=== PATIENT | male | born 1945 | race Caucasian/White ===

== ENCOUNTER → 2016-02-29 | Outpatient (CLI) | payer BC ==
[~2016-02-29] MED LIST: AMOX500C3 PO; ASPI81TA28 PO; ATV5X PO; CALC1CRE2 TOP; CLOB-65 TOP; CLOB1OIN2 TOP; MECL1TAB42 PO; METO50TA16 PO; MOME0.1O TOP; MULT-845 PO; NTRGSL/4 UT; OMEG100046 PO; OMEP40CA41 PO; PSYL48.59 PO; PSYL58.611 PO; SIMV40TA2 PO; TRIA75TA53 PO; VITA10004 PO; VITA1CRE PO; VTMD1000 PO
== END | disposition home or self-care (01) ==
LOC: C.MAMM 10:20
PROVIDERS: ATTEND Family Medicine
DX: M54.5 Low back pain (principal); M25.559 Pain in unspecified hip

== ENCOUNTER → 2016-04-21 | Outpatient (CLI) | payer BC ==
[2016-04-21 12:36] LABS: CHOLESTEROL/HDL RATIO 2.5
== END | disposition home or self-care (01) ==
LOC: C.LABPVFM 08:35
PROVIDERS: ATTEND Internal Medicine Cardiovascular Disease
DX: E78.5 Hyperlipidemia, unspecified (principal)

== ENCOUNTER 2016-10-07 19:25 | Emergency (ER) | payer BC ==
[~2016-10-07] VITALS: Ht 162.6 cm; Wt 81.6 kg
[~2016-10-07 19:25] MED LIST changes: -CLOB1OIN2 TOP; -MOME0.1O TOP; -PSYL48.59 PO; -VITA10004 PO; -VITA1CRE PO
[2016-10-07 19:34] VITALS: TEMP 36.5; Ht 162.6 cm; Wt 81.6 kg
[2016-10-07] MEDS ORDERED: MECLIZINE HCL 25 MG TAB PO STA (19:50)
[2016-10-07] MEDS ORDERED: SODIUM CHLORIDE 0.9% 1000ML 1,000 ML IV STA (19:50)
[2016-10-07] MEDS ORDERED: ONDANSETRON 4MG OD TAB PO ONE (20:00)
--- NOTE | 2016-10-07 20:11 | EMERGENCY ROOM VISIT NOTE ---
History Report prepared by Violet: Lexi Peterson Under the Supervision of: Dr. Chava Nicolas D.O. First contact with patient: 19:41 Chief Complaint: VERTIGO Stated Complaint: VERTIGO, DIZZY History of Present Illness The patient is a 71 year old male who presents to the Emergency Room with complaints of worsening vertigo for the past week. The patient states that he has been dealing with vertigo for the past two years. Over the last week his symptoms have worsened. He reports dizziness and nausea. His has had to pick him up from work twice this week due to his symptoms. The patient states that movement exacerbates his symptoms. Bending over and changing positions make him especially dizzy. He notes that the intensity of his symptoms is worse than usual. The patient has a history of Menieres Disease and has ringing in his ears that is chronic. He was at [facility] about 1 month ago and had a tube placed in his left ear. He notes that this typically makes his vertigo symptoms worse for a couple of days and then they improve. The patient denies weakness in his arms and legs. He denies any personal history of stroke. He takes Meclizine and Ativan for his symptoms at night, but he has not taken any today. Source of History: patient Onset: 1 week ago Position: other (global) Quality: other (vertigo/dizziness) Timing: worsening Modifying Factors (Worsening): movement, other (bending over and changing positions) Associated Symptoms: + nausea, No weakness Review of Systems See HPI for pertinent positives & negatives. A total of 10 systems reviewed and were otherwise negative. Past Medical & Surgical Medical Problems: (1) Heart disease (2) Hypertension (3) Vertigo Family History Heart disease Hypertension Social History Smoking Status: Never Smoker Marital Status: Housing Status: lives with family Occupation Status: employed Current/Historical Medications Scheduled Amoxicillin (Amoxil), 2,000 MG PO UD Aspirin (Aspirin Ec), 81 MG PO QAM Calcipotriene (Calcipotriene), 1 APPL TOP UD Cholecalciferol (Vitamin D3), 1,000 INTER.UNIT PO DAILY Clobetasol Propionate (Temovate), 1 APPLN TOP UD Meclizine Hcl (Meclizine Hcl), 25 MG PO QPM Metoprolol Tartrate (Lopressor) (Lopressor), 50 MG PO BID Mometasone Furoate (Elocon), 1 APPLN TOP DAILY Multiple Vitamins W/ Minerals (Centrum Silver Adult 50+), 1 TABLET PO DAILY [place]-3 Fatty Acids ([place] 3), 1,000 MG PO QAM Omeprazole (Prilosec), 40 MG PO BID Psyllium (Metamucil), 2 TBS PO BID Simvastatin (Zocor), 40 MG PO HS Triamterene/Hctz (Maxzide 75MG/50MG), 1 TAB PO DAILY Vitamin E (Vitamin E), 1,000 UNITS PO QPM Scheduled PRN Lorazepam (Lorazepam), 0.5 MG PO Q6 PRN for Anxiety Nitroglycerin (Nitrostat), 0.4 MG UT UD PRN for Chest Pain Allergies Coded Allergies: POLLEN (Verified Allergy, Mild, ENVIRONMENTAL ALLERGIES, 10/07/16) Physical Exam Vital Signs Date Time Temp Pulse Resp B/P (MAP) Pulse Ox O2 Delivery O2 Flow Rate FiO2 10/07/16 21:47 58 18 137/72 95 10/07/16 20:52 60 18 135/61 96 Room Air 10/07/16 20:26 98 Room Air 10/07/16 20:26 98 Room Air 10/07/16 20:05 61 10/07/16 19:42 68 20 162/65 95 Room Air 79 153/75 81 148/63 10/07/16 19:34 36.5 85 16 120/83 95 Room Air Physical Exam GENERAL: Patient is awake, alert, and in no acute distress. Patient is resting comfortably and showing no signs of anxiety EYES: The conjunctivae are clear. The pupils are round and reactive. EARS, NOSE, MOUTH AND THROAT: The nose is without any evidence of any deformity. Mucous membranes are moist tongue is midline NECK: The neck is nontender and supple. RESPIRATORY: Normal respiratory effort is noted there is no evidence of wheezing rhonchi or rales CARDIOVASCULAR: Regular rate and rhythm noted there no murmurs rubs or gallops normal S1 normal S2 GASTROINTESTINAL: The abdomen is soft. Bowel sounds are present in all quadrants. Abdomen is nontender MUSCULOSKELETAL/EXTREMITIES: There is no evidence of gross deformity full range of motion is noted in the hips and shoulders SKIN: There is no obvious evidence of any rash. There are no petechiae, pallor or cyanosis noted. NEUROLOGIC: Patient is awake alert and oriented x3 strength is symmetric patellar reflexes are 2+ bilaterally. Rapid alternating movements were symmetrical, no past pointing noted. Medical Decision & Procedures ER Provider Diagnostic Interpretation: Radiology results as stated below per my review and radiologist interpretation: CHEST ONE VIEW PORTABLE CLINICAL HISTORY: 71 years-old Male presenting with EVALUATE ALTERED MENTAL STATUS/WEAKNESS. TECHNIQUE: Portable upright AP view of the chest was obtained. COMPARISON: 04/28/2015. FINDINGS: Spinal stimulator projects over the cardiac silhouette. Otherwise cartilage mediastinal silhouette normal. Lungs and pleural spaces clear. Azygos lobe noted. Partially visualized lumbar region hardware. Upper abdomen normal. IMPRESSION: 1. No acute cardiopulmonary disease. Electronically signed by: Molina Vicente M.D. 10/07/2016 8:27 PM Dictated Date/Time: 10/07/2016 8:26 PM Laboratory Results 10/07/16 20:09 Red Blood Count 4.76, Mean Corpuscular Volume 90.1, Mean Corpuscular Hemoglobin 29.8, Mean Corpuscular Hemoglobin Concent 33.1, Mean Platelet Volume 10.2, Neutrophils (%) (Auto) 62.5, Lymphocytes (%) (Auto) 21.7, Monocytes (%) (Auto) 11.7, Eosinophils (%) (Auto) 3.5, Basophils (%) (Auto) 0.4, Neutrophils # (Auto ) 5.01, Lymphocytes # (Auto) 1.74, Monocytes # (Auto) 0.94, Eosinophils # (Auto ) 0.28, Basophils # (Auto) 0.03 10/07/16 20:09 Test 10/07/16 20:09 10/07/16 20:11 White Blood Count 8.02 K/uL (4.8-10.8) Red Blood Count 4.76 M/uL (4.7-6.1) Hemoglobin 14.2 g/dL (14.0-18.0) Hematocrit 42.9 % (42-52) Mean Corpuscular Volume 90.1 fL (80-100) Mean Corpuscular Hemoglobin 29.8 pg (25-34) Mean Corpuscular Hemoglobin Concent 33.1 g/dl (32-36) Platelet Count 265 K/uL (130-400) Mean Platelet Volume 10.2 fL (7.4-10.4) Neutrophils (%) (Auto) 62.5 % Lymphocytes (%) (Auto) 21.7 % Monocytes (%) (Auto) 11.7 % Eosinophils (%) (Auto) 3.5 % Basophils (%) (Auto) 0.4 % Neutrophils # (Auto) 5.01 K/uL (1.4-6.5) Lymphocytes # (Auto) 1.74 K/uL (1.2-3.4) Monocytes # (Auto) 0.94 K/uL (0.11-0.59) Eosinophils # (Auto) 0.28 K/uL (0-0.5) Basophils # (Auto) 0.03 K/uL (0-0.2) RDW Standard Deviation 42.0 fL (36.4-46.3) RDW Coefficient of Variation 12.8 % (11.5-14.5) Immature Granulocyte % (Auto) 0.2 % Immature Granulocyte # (Auto) 0.02 K/uL (0.00-0.02) Prothrombin Time 10.3 SECONDS (9.0-12.0) Prothromb Time International Ratio 1.0 (0.9-1.1) Activated Partial Thromboplast Time 27.6 SECONDS (21.0-31.0) Partial Thromboplastin Ratio 1.1 Anion Gap 5.0 mmol/L (3-11) Est Creatinine Clear Calc Drug Dose 49.5 ml/min Estimated GFR () 63.2 Estimated GFR (Non- 54.5 BUN/Creatinine Ratio 16.1 (10-20) Calcium Level 8.6 mg/dl (8.5-10.1) Magnesium Level 2.3 mg/dl (1.8-2.4) Total Bilirubin 0.7 mg/dl (0.2-1) Direct Bilirubin 0.2 mg/dl (0-0.2) Aspartate Amino Transf (AST/SGOT) 21 U/L (15-37) Alanine Aminotransferase (ALT/SGPT) 32 U/L (12-78) Alkaline Phosphatase 90 U/L (45-117) Troponin I 0.038 ng/ml (0-0.045) Total Protein 6.8 gm/dl (6.4-8.2) Albumin 3.4 gm/dl (3.4-5.0) Thyroid Stimulating Hormone (TSH) 1.250 uIu/ml (0.300-4.500) Urine Color YELLOW Urine Appearance CLEAR (CLEAR) Urine pH 6.0 (4.5-7.5) Urine Specific [place] 1.022 (1.000-1.030) Urine Protein NEG (NEG) Urine Glucose (UA) NEG (NEG) Urine Ketones TRACE (NEG) Urine Occult Blood NEG (NEG) Urine Nitrite NEG (NEG) Urine Bilirubin NEG (NEG) Urine Urobilinogen NEG (NEG) Urine Leukocyte Esterase NEG (NEG) Laboratory results per my review. Medications Administered Medications (Trade) Dose Ordered Sig/Philip Route Start Time Stop Time Status Last Admin Dose Admin Ondansetron HCl (Zofran Odt) 4 mg ONE ONCE PO 10/07/16 20:00 10/07/16 20:01 DC 10/07/16 20:27 4 MG Sodium Chloride 1,000 ml @ 999 mls/hr Q1H1M STAT IV 10/07/16 19:50 10/07/16 20:50 DC 10/07/16 19:40 999 MLS/HR Meclizine HCl (Antivert Tab) 25 mg NOW STAT PO 10/07/16 19:50 10/07/16 19:51 DC 10/07/16 20:27 25 MG ECG Indication: other (dizzy) Rate (beats per minute): 63 Rhythm: normal sinus Findings: no acute ischemic change, no ectopy Comparison ECG Date: 07/06/15 Change: no significant change ED Course 1940: The patient was evaluated in room C10. A complete history and physical examination were performed. 1950: Meclizine HCl 25 mg PO, NSS 1000 ml @ 999 mls/hr IV 1999: Zofran 4 mg PO 2112: I reassessed the patient at this time. He is feeling better and resting comfortably. I discussed the results and treatment plan with the patient. I answered all pertaining questions that he had. He expressed understanding and verbalized agreement. The patient will be discharged home. Medical Decision Differential diagnosis: Etiologies such as benign positional vertigo, dehydration, hypovolemia, anemia, tumor, infection, hypoglycemia, electrolyte abnormalities, cardiac sources, intracerebral event, toxicologic, neurologic, as well as others were entertained. Nursing notes reviewed. Patient's previous electronic medical records reviewed. The patient is a 71-year-old male who has a history of chronic vertigo who presented to the emergency department for an evaluation of vertigo. The patient did not take his medications for vertigo and was treated with meclizine and Zofran in the emergency department. He is had radiographic studies in the past. The patient is currently scheduled to follow-up for vestibular rehabilitation this Sunday. He was reevaluated multiple times. On subsequent reevaluation he was feeling much better. He was encouraged to rest and avoid any strenuous activity. He was also encouraged to continue all medications as prescribed and follow-up with his primary care physician for further evaluation. He was also encouraged to return the emergency Department immediately if symptoms change worsen or the need arises. The patient did not have any focal neurologic deficit. Medication Reconcilliation Current Medication List: was personally reviewed by me Blood Pressure Screening Patient's blood pressure: Normal blood pressure Impression Primary Impression: Vertigo Scribe Attestation The scribe's documentation has been prepared under my direction and personally reviewed by me in its entirety. I confirm that the note above accurately reflects all work, treatment, procedures, and medical decision making performed by me. Departure Information Dispostion Home / Self-Care Referrals Molina Otto M.D. (PCP) Forms HOME CARE DOCUMENTATION FORM, IMPORTANT VISIT INFORMATION, WORK / SCHOOL INSTRUCTIONS Patient Instructions ED Dizziness [facility], My [facility] Additional Instructions Continue all medications as prescribed. Rest and avoid any strenuous activity. Follow-up for therapy on Sunday as scheduled. Return to emergency department immediately if symptoms change worsen or the need arises
[2016-10-07] MEDS ORDERED: CALC1CRE2 TOP (20:23)
[2016-10-07 20:26] VITALS: O2SAT 98
[2016-10-07] MEDS ORDERED: CLOB1OIN2 TOP (20:27)
--- NOTE | 2016-10-07 20:29 | DIAGNOSTIC IMAGING REPORT ---
CHEST ONE VIEW PORTABLE CLINICAL HISTORY: 71 years-old Male presenting with EVALUATE ALTERED MENTAL STATUS/WEAKNESS. TECHNIQUE: Portable upright AP view of the chest was obtained. COMPARISON: 04/28/2015. FINDINGS: Spinal stimulator projects over the cardiac silhouette. Otherwise cartilage mediastinal silhouette normal. Lungs and pleural spaces clear. Azygos lobe noted. Partially visualized lumbar region hardware. Upper abdomen normal. IMPRESSION: 1. No acute cardiopulmonary disease. Electronically signed by: Molina Vicente M.D. 10/07/2016 8:27 PM Dictated Date/Time: 10/07/2016 8:26 PM
[2016-10-07 20:30] LABS: BASO % 0.4 %; BASO ABS # 0.03 K/uL (0-0.2); COMPLETE YES; EOS % 3.5 %; HEMATOCRIT 42.9 % (42-52); IG% 0.2 %; LYMPH % 21.7 %; LYMPH ABS # 1.74 K/uL (1.2-3.4); MEAN CELL VOLUME 90.1 fL (80-100); MEAN CORPUSCULAR HEMOGLOBIN 29.8 pg (25-34); MEAN CORPUSCULAR HGB CONC 33.1 g/dl (32-36); MEAN PLATELET VOLUME 10.2 fL (7.4-10.4); MONO % 11.7 %; NEUT % 62.5 %; PLATELET COUNT 265 K/uL (130-400); RED BLOOD COUNT 4.76 M/uL (4.7-6.1); WHITE BLOOD COUNT 8.02 K/uL (4.8-10.8)
[2016-10-07] MEDS ORDERED: PSYL48.59 PO (20:33)
[2016-10-07 20:36] LABS: URINE APPEARANCE CLEAR (CLEAR); URINE BILIRUBIN NEG (NEG); URINE COLOR YELLOW; URINE NITRITE NEG (NEG); URINE SPECIFIC GRAVITY 1.022 (1.000-1.030); UROBILINOGEN NEG (NEG)
[2016-10-07] MEDS ORDERED: MOME0.1O TOP (20:36)
[2016-10-07 20:37] LABS: MANUAL MICROSCOPIC REQUIRED? NO; REVIEW REQ? NO
[2016-10-07 20:40] LABS: PARTIAL THROMBOPLASTIN RATIO 1.1; PROTHROMBIN TIME (PATIENT) 10.3 SECONDS (9.0-12.0)
[2016-10-07] MEDS ORDERED: VITA1CRE PO (20:40)
[2016-10-07] MEDS ORDERED: VITA10004 PO (20:41)
[2016-10-07] MEDS ORDERED: TRIA75TA53 PO (20:44)
[2016-10-07 20:45] LABS: BUN/CREATININE RATIO 16.1 (10-20); CALCIUM 8.6 mg/dl (8.5-10.1); CREATININE 1.3 mg/dl (0.60-1.40); MAGNESIUM 2.3 mg/dl (1.8-2.4)
[2016-10-07 20:56] LABS: THYROID STIMULATING HORMONE 1.25 uIu/ml (0.300-4.500)
[2016-10-07 21:47] VITALS: BP 137/72; PULSE 58; O2SAT 95
== END 2016-10-07 21:49 | disposition home or self-care (01) ==
LOC: C.EDB 19:26 → C.EDC 21:49
DX: R42 Dizziness and giddiness (principal); I10 Essential (primary) hypertension; I51.9 Heart disease, unspecified; Z79.82 Long term (current) use of aspirin; Z79.899 Other long term (current) drug therapy; Z91.09 Other allergy status, other than to drugs and biological substances; Z82.49 Family history of ischemic heart disease and other diseases of the circulatory system

== ENCOUNTER → 2017-04-24 | Outpatient (CLI) | payer BC ==
[~2017-04-24] MED LIST changes: -CLOB-65 TOP; +CLOB1OIN2 TOP; +MOME0.1O TOP; +PSYL48.59 PO; -PSYL58.611 PO; +VITA10004 PO
== END | disposition home or self-care (01) ==
LOC: C.LABPVFM 08:12
PROVIDERS: ATTEND Internal Medicine Cardiovascular Disease
DX: E78.5 Hyperlipidemia, unspecified (principal)

== ENCOUNTER 2018-10-18 11:42 | Inpatient (IN) ==
[2018-10-18] MEDS ORDERED: dilTIAZem HCl 5 MG/ML 5 ML VIAL IV STA (12:04)
[2018-10-18] MEDS ORDERED: dilTIAZem HCl 125 MG in DEXTROSE 5% 100 ML IV STA (12:04)
[2018-10-18] MEDS ORDERED: SODIUM CHLORIDE 0.9% 500 ML IV SCH (12:15)
[2018-10-18 12:45] LABS: Basophils # (auto) 0.02 K/uL (0-0.2); Basophils % (auto) 0.2 %; Eosinophils # (auto) 0.09 K/uL (0-0.5); Hematocrit (blood only) 45.5 % (42-52); Hemoglobin 15.6 g/dL (14.0-18.0); Immature Granulocytes # (auto) 0.06 K/uL (0.00-0.02); Immature Granulocytes % (auto) 0.7 %; Lymphocytes # (auto) 0.93 K/uL (1.2-3.4); Lymphocytes % (auto) 10.5 %; Mean Corpuscular Hgb Conc 34.3 g/dL (32-36); Mean Platelet Volume 9.8 fL (7.4-10.4); Monocytes # (auto) 0.98 K/uL (0.11-0.59); Monocytes % (auto) 11.1 %; Neutrophils # (auto) 6.78 K/uL (1.4-6.5); Neutrophils % (auto) 76.5 %; Platelet Count 234 K/uL (130-400); RDW Coefficient of Variation 13.8 % (11.5-14.5); RDW Standard Deviation 44.7 fL (36.4-46.3); White Blood Count 8.86 K/uL (4.8-10.8)
[2018-10-18 12:59] LABS: Partial Thromboplastin Time 27.6 Seconds (21.0-31.0); Prothrombin Time 10.7 Seconds (9.0-12.0)
[2018-10-18 13:10] LABS: Alanine Aminotransferase 33 U/L (12-78); Albumin Level 3.4 gm/dl (3.4-5.0); Aspartate Aminotransferase 29 U/L (15-37); BUN Creatinine Ratio 14.9 (10-20); Blood Urea Nitrogen 19 mg/dl (7-18); Calcium 8.4 mg/dl (8.5-10.1); Carbon Dioxide 25 mmol/L (21-32); Chloride 105 mmol/L (98-107); Creatinine Clr Calc Pharmacy 48.9 ml/min; Est GFR (African American) 61.7; Est GFR (Non-African American) 53.3; Glucose 96 mg/dl (70-99); Magnesium 2.4 mg/dl (1.8-2.4); Potassium 4.4 mmol/L (3.5-5.1); Sodium 138 mmol/L (136-145)
[2018-10-18 13:21] LABS: Albumin Globulin Ratio 0.9 (0.9-2); Alkaline Phosphatase 94 U/L (45-117); Bilirubin,Total 1.2 mg/dl (0.2-1); Globulin 3.9 gm/dl (2.5-4.0); Total Protein 7.3 gm/dl (6.4-8.2); Troponin I < 0.015 ng/ml (0-0.045)
[2018-10-18] MEDS ORDERED: Heparin IV Standard *NO* Bolus IV ONE (13:40)
[2018-10-18] MEDS: HEPARIN SODIUM/DEXTROSE 25,000 UNITS/500 ML BAG IV SCH (14:06)
--- NOTE | 2018-10-18 14:06 | XRay Report ---
XR chest 1V portable HISTORY: 73 years-old Male Chest Pain acute atypical chest pain COMPARISON: Chest radiograph 10/07/2016 TECHNIQUE: Portable AP view of the chest FINDINGS: Cardiomediastinal and hilar silhouettes are within normal limits. Battery pack projects over the left chest with stimulator leads projecting over the spine. There is no pneumothorax, pleural effusion, f ocal airspace consolidation or overt pulmonary edema. Azygos lobe and fissure. Degenerative changes o f the shoulders and spine. Partially imaged lumbar spinal fusion hardware. IMPRESSION: No acute cardiopulmonary abnormality. The above report was generated using voice recognition software. It may contain grammatical, syntax o r spelling errors. Electronically signed by: Felix Jasmine M.D. 10/18/2018 2:04 PM
--- NOTE | 2018-10-18 14:39 | Emergency Department Note ---
Entered by Kristel An acting as a scribe for History of Present Illness General Chief complaint: Cardiac Assessment Time Seen by Provider: 10/18/18 11:59 Source: patient History of Present Illness Provider complaint: atrial fibrillation Onset (ago): unknown Pain Consistency: + other (episode) Quality: + other (atrial fibrillation) Associated symptoms: + denies other symptoms (pain, dizziness, lightheadedness) and + other (only ingested liquids for the past 2 days, asymptomatic) Treatments prior to arrival: none The patient is a 73 year old male who presents to the ED with complaints of an episode of atrial fibrillation that began at an unknown time. The patient states that he went to get a colonoscopy today, but was sent to the ED because they found a new onset of Afib. The patient denies pain, dizziness and lightheade dness. The patient notes that the Afib may have started when he began the all- liquid diet for the colonoscopy, but is unsure when exactly because he is asymptomatic. The patient states that he has only ingested liquids for the past 2 days. The patient denies receiving any treatment prior to arrival. Home Medications Home Medications Medication Instructions Recorded Confirmed Type Centrum Silver Men 1 tab PO QPM 04/19/18 10/18/18 History aspirin [Aspir-Low] 81 mg PO QAM 04/19/18 10/18/18 History cholecalciferol (vitamin D3) 1,000 unit PO QPM 04/19/18 10/18/18 History [Vitamin D3] metoprolol tartrate 50 mg PO BID 04/19/18 10/18/18 History nitroglycerin 1 tab SUBLINGUAL UD PRN 04/19/18 10/18/18 History omeprazole 20 mg PO BID 04/19/18 10/18/18 History simvastatin 40 mg PO PM 04/19/18 10/18/18 History triamcinolone acetonide 1 applic TOPICAL UD PRN 04/19/18 10/18/18 History bisacodyl [Dulcolax (bisacodyl)] 5 mg PO HS 09/27/18 10/18/18 History calcipotriene [Dovonex] 1 applic TOPICAL 2XWK 09/27/18 10/18/18 History omega 6-qra-oak-fish oil [Fish Oil] 1 cap PO QAM 09/27/18 10/18/18 History psyllium husk [Metamucil] 2 tbsp PO BID 09/27/18 10/18/18 History vitamin E 400 unit PO QAM 09/27/18 10/18/18 History lisinopril 10 1 tab PO QAM #30 tab 10/07/18 10/18/18 Rx mg-hydrochlorothiazide 12.5 mg tablet Allergies Allergy/AdvReac Type Severity Reaction Status Date / Time pollen extracts Allergy Mild ENVIRONMENTAL Verified 10/18/18 13:16 ALLERGIES Past Med/Surg History Medical History Premature ventricular contractions (Acute) Dyslipidemia (Chronic) Arteriosclerotic cardiovascular disease (ASCVD) (Acute) Broken back Myocardial contusion Barretts esophagus Chronic back pain SPINAL MANIPULATION DONE MONTHLY GERD (gastroesophageal reflux disease) Hypertension Irregular heart beat Meniere disease Vertigo Surgical History Fusion of spine LUMBAR History of adenoidectomy History of cardiac cath 2005 History of colonoscopy History of ear surgery RADICAL SURGERY ON LEFT EAR INCLUDING into the COCHLEAR History of esophagogastroduodenoscopy (EGD) History of heart artery stent 2006-1 STENT PLACED History of herniorrhaphy History of tonsillectomy History of tooth extraction Family History Father Family history of diabetes mellitus Social History Preferred Language: Niuean Communication Ability: Effective 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 and A total of 10 systems reviewed and were otherwise negative Physical Exam Vital Signs Vital Signs - 24 hr 10/18/18 11:47 10/18/18 12:15 10/18/18 12:45 Temperature 36.8 C Temperature Source Oral Sepsis Recent Fever Within 48 Hours No Sepsis Action Taken by Nursing No Action Required Pulse Rate 127 H 106 H 87 Pulse Rate from SpO2 Sensor 112 H 90 Pulse Rhythm Irregular Respiratory Rate 20 15 22 Blood Pressure 167/80 H 152/78 H 138/61 Blood Pressure Mean 109 102 86 Pulse Oximetry 97 96 94 Oxygen Delivery Method Room Air Room Air Room Air 10/18/18 13:00 10/18/18 13:15 10/18/18 13:30 Temperature Temperature Source Sepsis Recent Fever Within 48 Hours Sepsis Action Taken by Nursing Pulse Rate 93 H 96 H 89 Pulse Rate from SpO2 Sensor 104 H 96 H 102 H Pulse Rhythm Respiratory Rate 20 21 15 Blood Pressure 139/67 149/71 H 112/78 Blood Pressure Mean 91 97 89 Pulse Oximetry 98 97 91 Oxygen Delivery Method Room Air Room Air Room Air 10/18/18 13:45 10/18/18 14:00 10/18/18 14:16 Temperature Temperature Source Sepsis Recent Fever Within 48 Hours Sepsis Action Taken by Nursing Pulse Rate 103 H 108 H 108 H Pulse Rate from SpO2 Sensor 97 H 103 H 103 H Pulse Rhythm Respiratory Rate 19 15 19 Blood Pressure 117/84 138/74 105/51 L Blood Pressure Mean 95 95 69 Pulse Oximetry 95 95 94 Oxygen Delivery Method Room Air Room Air Room Air 10/18/18 14:31 10/18/18 14:45 10/18/18 15:00 Temperature Temperature Source Sepsis Recent Fever Within 48 Hours Sepsis Action Taken by Nursing Pulse Rate 97 H 117 H 114 H Pulse Rate from SpO2 Sensor 112 H 105 H 111 H Pulse Rhythm Respiratory Rate 19 30 H 21 Blood Pressure 124/70 156/107 H 140/70 Blood Pressure Mean 88 123 93 Pulse Oximetry 91 96 94 Oxygen Delivery Method Room Air Room Air Room Air 10/18/18 15:15 Temperature Temperature Source Sepsis Recent Fever Within 48 Hours Sepsis Action Taken by Nursing Pulse Rate 116 H Pulse Rate from SpO2 Sensor 120 H Pulse Rhythm Respiratory Rate 23 Blood Pressure 152/102 H Blood Pressure Mean 118 Pulse Oximetry 95 Oxygen Delivery Method Room Air GENERAL: Patient is in no acute distress. HEENT: No acute trauma, normocephalic atraumatic, mucous membranes moist, no nasal congestion, no scleral icterus. NECK: No stridor, no adenopathy, no meningismus, trachea is midline. LUNGS: Clear to auscultation bilaterally, no wheeze, no rhonchi, breath sounds equal. HEART: Tachycardic rate, irregular rhythm. No murmurs. ABDOMEN: Soft, nontender, bowel sounds positive, no hernias, no peritonitis. EXTREMITIES: No cyanosis or edema, full range of motion of all the joints without pain or difficulty, no signs for acute trauma. NEUROLOGIC: Oriented x 3, no acute motor or sensory deficits, no focal weakness. SKIN: No rash, no jaundice, no diaphoresis. Course 1203: Past medical records reviewed. The patient was evaluated in room C2. A complete history and physical exam was performed. 1338: I discussed the patient's case with Dr. Sanford [facility] Hospitalist. She states that we should start a Heparin drip. She will evaluate the patient for further management. 1340: I reevaluated the patient and he is feeling okay. He denies rectal bleeding. I discussed the plan for admission and he verbally agrees and understands. Consultations Consultation #1: I [facility] the [facility] She states that we should start a heparin drip. She will evaluate the patient for further management. Time: 13:38 Administered Medications Heparin Sodium/Dextrose () 1 ea IV Q10M RACHEL; Protocol Stop: 11/17/18 16:44 Last Admin: 10/18/18 17:34 Dose: 1 ea Documented by: [id number] Heparin Sodium/Dextrose (Heparin Sodium/Dextrose) 25,000 units in 500 mls @ 0.02 mls/hr IV .Q24H RACHEL; Protocol Stop: 11/17/18 13:44 Last Titration: 10/18/18 16:38 Dose: 1,250 units/hr, 25 mls/hr Documented by: [id number] Cosigned by: [id number] Admin: 10/18/18 14:06 Dose: 1,250 units/hr, 25 mls/hr Documented by: [id number] Cosigned by: [id number] Discontinued Medications Diltiazem HCl (Cardizem) 10 mg IV NOW STA Stop: 10/18/18 12:05 Last Admin: 10/18/18 12:39 Dose: 10 mg Documented by: [id number] Cosigned by: [id number] Heparin Sodium/Dextrose () 1 ea IV ONE ONE; Protocol Stop: 10/18/18 13:41 Last Admin: 10/18/18 14:14 Dose: Not Given Documented by: [id number] Diltiazem HCl 125 mg/ Dextrose 125 mls @ 0 mls/hr IV .Q0M STA; Protocol Stop: 10/18/18 12:05 Last Titration: 10/18/18 16:38 Dose: 10 mg/hr, 10 mls/hr Documented by: [id number] Cosigned by: [id number] Titration: 10/18/18 15:27 Dose: 10 mg/hr, 10 mls/hr Documented by: [id number] Admin: 10/18/18 12:39 Dose: 5 mg/hr, 5 mls/hr Documented by: [id number] Cosigned by: [id number] Sodium Chloride (Nss) 500 mls @ 999 mls/hr IV .Q31M RACHEL Stop: 10/18/18 12:45 Last Infusion: 10/18/18 13:19 Dose: 0 mls/hr Documented by: [id number] Admin: 10/18/18 12:36 Dose: 999 mls/hr Documented by: [id number] Diltiazem HCl 125 mg/ Dextrose 125 mls @ 10 mls/hr IV .A61T66M RACHEL; Protocol Stop: 11/17/18 17:14 Last Admin: 10/18/18 17:32 Dose: 10 mg/hr, 10 mls/hr Documented by: [id number] Cosigned by: [id number] Medical Decision Making Differential Diagnosis Differentials include atrial fibrillation, atrial flutter, electrolyte imbalance, anemia, thyroid disorder, dehydration, NE, SVT. Medical Records Attestation: I reviewed the patient's medical records. Home Medications Current Medication List: was personally reviewed by me Laboratory Data Attestation: I reviewed the patient's lab results. Result diagrams: 10/18/18 12:24 10/18/18 12:24 Lab Results 10/18/18 10/18/18 10/18/18 Range/Units 12:24 12:24 12:24 WBC 8.86 (4.8-10.8) K/uL RBC 5.00 (4.7-6.1) M/uL Hgb 15.6 (14.0-18.0) g/dL Hct 45.5 (42-52) % MCV 91.0 (80-100) fL MCH 31.2 (25-34) pg MCHC 34.3 (32-36) g/dL RDW Std Deviation 44.7 (36.4-46.3) fL RDW Coeff of Lona 13.8 (11.5-14.5) % Plt Count 234 (130-400) K/uL MPV 9.8 (7.4-10.4) fL Immature Gran % (Auto) 0.7 % Neut % (Auto) 76.5 % Lymph % (Auto) 10.5 % Victoria % (Auto) 11.1 % Eos % (Auto) 1.0 % Baso % (Auto) 0.2 % Immature Gran # (Auto) 0.06 H (0.00-0.02) K/uL Neut # (Auto) 6.78 H (1.4-6.5) K/uL Lymph # (Auto) 0.93 L (1.2-3.4) K/uL Victoria # (Auto) 0.98 H (0.11-0.59) K/uL Eos # (Auto) 0.09 (0-0.5) K/uL Baso # (Auto) 0.02 (0-0.2) K/uL PT 10.7 (9.0-12.0) Seconds INR 1.0 (0.9-1.1) APTT 27.6 (21.0-31.0) Seconds PTT Ratio 1.0 Sodium 138 (136-145) mmol/L Potassium 4.4 (3.5-5.1) mmol/L Chloride 105 (98-107) mmol/L Carbon Dioxide 25 (21-32) mmol/L Anion Gap 8.0 (3-11) BUN 19 H (7-18) mg/dl Creatinine 1.31 (0.6-1.4) mg/dl Est Cr Clr Drug Dosing 48.9 ml/min Est GFR ( Amer) 61.7 Est GFR (Non-Af Amer) 53.3 BUN/Creatinine Ratio 14.9 (10-20) Glucose 96 (70-99) mg/dl Calcium 8.4 L (8.5-10.1) mg/dl Magnesium 2.4 (1.8-2.4) mg/dl Total Bilirubin 1.2 H (0.2-1) mg/dl AST 29 (15-37) U/L ALT 33 (12-78) U/L Alkaline Phosphatase 94 (45-117) U/L Troponin I < 0.015 (0-0.045) ng/ml Total Protein 7.3 (6.4-8.2) gm/dl Albumin 3.4 (3.4-5.0) gm/dl Globulin 3.9 (2.5-4.0) gm/dl Albumin/Globulin Ratio 0.9 (0.9-2) Lipase 114 (73-393) U/L TSH 0.554 (0.300-4.500) uIu/ml 10/18/18 Range/Units 12:24 WBC (4.8-10.8) K/uL RBC (4.7-6.1) M/uL Hgb (14.0-18.0) g/dL Hct (42-52) % MCV (80-100) fL MCH (25-34) pg MCHC (32-36) g/dL RDW Std Deviation (36.4-46.3) fL RDW Coeff of Lona (11.5-14.5) % Plt Count (130-400) K/uL MPV (7.4-10.4) fL Immature Gran % (Auto) % Neut % (Auto) % Lymph % (Auto) % Victoria % (Auto) % Eos % (Auto) % Baso % (Auto) % Immature Gran # (Auto) (0.00-0.02) K/uL Neut # (Auto) (1.4-6.5) K/uL Lymph # (Auto) (1.2-3.4) K/uL Victoria # (Auto) (0.11-0.59) K/uL Eos # (Auto) (0-0.5) K/uL Baso # (Auto) (0-0.2) K/uL PT (9.0-12.0) Seconds INR (0.9-1.1) APTT (21.0-31.0) Seconds PTT Ratio Sodium (136-145) mmol/L Potassium (3.5-5.1) mmol/L Chloride (98-107) mmol/L Carbon Dioxide (21-32) mmol/L Anion Gap (3-11) BUN (7-18) mg/dl Creatinine (0.6-1.4) mg/dl Est Cr Clr Drug Dosing ml/min Est GFR ( Amer) Est GFR (Non-Af Amer) BUN/Creatinine Ratio (10-20) Glucose (70-99) mg/dl Calcium (8.5-10.1) mg/dl Magnesium Cancelled (1.8-2.4) mg/dl Total Bilirubin (0.2-1) mg/dl AST (15-37) U/L ALT (12-78) U/L Alkaline Phosphatase (45-117) U/L Troponin I (0-0.045) ng/ml Total Protein (6.4-8.2) gm/dl Albumin (3.4-5.0) gm/dl Globulin (2.5-4.0) gm/dl Albumin/Globulin Ratio (0.9-2) Lipase (73-393) U/L TSH Cancelled (0.300-4.500) uIu/ml Imaging Data Radiologist's Impression: Radiology results as stated below per my review and the radiologist's interpretation: XR chest 1V portable HISTORY: 73 years-old Male Chest Pain acute atypical chest pain COMPARISON: Chest radiograph 10/07/2016 TECHNIQUE: Portable AP view of the chest FINDINGS: Cardiomediastinal and hilar silhouettes are within normal limits. Battery pack projects over the left chest with stimulator leads projecting over the spine. There is no pneumothorax, pleural effusion, focal airspace consolidation or overt pulmonary edema. Azygos lobe and fissure. Degenerative changes of the shoulders and spine. Partially imaged lumbar spinal fusion hardware. IMPRESSION: No acute cardiopulmonary abnormality. The above report was generated using voice recognition software. It may contain grammatical, syntax or spelling errors. Electronically signed by: Felix Jasmine M.D. 10/18/2018 2:04 PM ECG Data Attestation: I personally reviewed and interpreted this ECG as follows: Indication: tachycardia Rate (beats per minute): 117 Rhythm: atrial fibrillation Findings: + nonspecific-ST abn and + PVC; no ST depression, no ST elevation and no acute ischemic change Blood Pressure Blood Pressure Findings: Elevated blood pressure Blood Pressure Disposition: further management by hospitalist [facility] Narrative There is no leukocytosis or concerning anemia. No coagulopathy. No significant electrolyte abnormality or kidney failure. No worrisome liver enzyme elevation. No evidence for pancreatitis. The patient appeared to be in a euthyroid state. Chest film did not show pneumonia or pneumothorax. EKG did show a rapid A. fib without any acute ischemic change. Cardiac enzyme testing x1 was not consistent with acute cardiac injury. The patient presents with a rapid A. fib. He was asymptomatic. He was given a bolus of IV diltiazem then placed on a diltiazem drip. He was eventually placed on a heparin drip. He received an IV saline bolus. The patient is in need of a hospital stay. He is in a new onset rapid A. fib. He is doing well with his Cardizem drip, his heart rate has decreased. He has no complaints at the present time. I spoke with the case management team. I talked to the patient about all his findings. The on-call hospitalist was cons ulted. Impression & Plan Atrial fibrillation, rapid, Tachycardia Critical Care Time Critical Care Time: Yes Total Critical Care Time: 37 I have personally spent 37 minutes of critical care time in the direct management of this patient. This includes bedside care, interpretation of diagnostic studies, and testing, discussion with consultants, patient, and family members, and other required patient management activities. This 37 minutes is in excess of all separately billable procedures. Discharge Plan Visit Data *Final* Discharge Date/Time: 10/18/18 16:16 Chief Complaint: Cardiac Assessment ED Provider: Roldan Alva Discharge Problem: Atrial fibrillation, rapid, Tachycardia Patient Disposition: Admitted As Inpatient Discharge Instructions Interventions: ED Discharge Assessment Last Done: 10/18/18 16:16 The scribe's documentation has been prepared under my direction and personally reviewed by me in its entirety. I confirm that the note above accurately reflects all work, treatment, procedures, and medical decision making performed by me.
--- NOTE | 2018-10-18 15:07 | History & Physical Report ---
Date of Service October 18, 2018 Assessment & Plan (1) Atrial fibrillation, rapid: Admit to PCU on telemetry Vital signs every 4 hours CBC CMP TSH lipid panel A1c BNP pending Cardiology consult TTE Continue diltiazem and heparin drip DVT prophylaxis heparin drip and for A. fib's Full code Present on Admission?: Yes (2) Guzman's esophagus: Stable at this time Present on Admission?: Yes (3) CAD (coronary artery disease): Continue home medicine: Aspirin 81 mg p.o. every morning, lisinopril 10 mg/hydrochlorothiazide 12.5 mg tablet, hold metoprolol tartrate 50 mg p.o. twice daily while patient is on diltiazem drip. Nitroglycerin 1 tablet sublingual as needed. Continue on with 3 fish oil. Present on Admission?: Yes (4) Psoriasis: Stable continue Dovonex 1 application topical every 2 weeks, continue vitamin E 400 mg p.o. every morning, triamcinolone at second need 1 application topical as needed and as directed. Present on Admission?: Yes (5) Dyslipidemia: Continue simvastatin 40 mg p.o. every afternoon, fish oil, lipid panel pending Present on Admission?: Yes (6) Arteriosclerotic cardiovascular disease (ASCVD): As the above Present on Admission?: Yes History of Present Illness Chief Complaint: Atrial fibrillation with RVR Primary Care Provider: Marlys Oneill MD Patient is a 73 years old male with past medical history of hypertension, dyslipidemia, atrial premature complexes, coronary artery disease, Guzman's esophagus, no new disease presents today to have colonoscopy and it was noted that he had atrial fibrillation's with RVR on his EKG at that point.Patient was asymptomatic. Patient denies fever chills chest pain shortness of breath abdominal pain frequency urgency dysuria hematuria melena hemoptysis hematochezia nausea or vomiting. Patient did bowel prep last night and yesterday and he did not eat anything since Sunday. EKG is reviewed: Which shows atrial fibrillation with rapid ventricular response, minimal voltage LVH and nonspecific T wave abnormalities in V2 through V4. Labs are reviewed and showed viable cell of 8.6, hemoglobin 15.6, hematocrit 45.5 platelets 234., PT 10.7, INR 1 APTT 26.5, sodium 138, potassium 4.4, chloride 105, anion gap 8, BUN 19, creatinine 1.31, GFR 53.3, total bilirubin 1.2, calcium 8.4, AST 29 ALT 33, troponin 0 0.015. Chest x-ray show no acute cardiopulmonary abnormality. Patient was immediately started on diltiazem drip and heparin drip for new onset of A. fib's. Echocardiogram pending. Cardiology consult placed. Decision was made to admit patient to PCU on telemetry and continue drip until patient converted been normal sinus rhythm. Allergies Allergy/AdvReac Type Severity Reaction Status Date / Time pollen extracts Allergy Mild ENVIRONMENTAL Verified 10/18/18 13:16 ALLERGIES Home Medications Home Medications Medication Instructions Recorded Confirmed Type Centrum Silver Men 1 tab PO QPM 04/19/18 10/18/18 History aspirin [Aspir-Low] 81 mg PO QAM 04/19/18 10/18/18 History cholecalciferol (vitamin D3) 1,000 unit PO QPM 04/19/18 10/18/18 History [Vitamin D3] metoprolol tartrate 50 mg PO BID 04/19/18 10/18/18 History nitroglycerin 1 tab SUBLINGUAL UD PRN 04/19/18 10/18/18 History omeprazole 20 mg PO BID 04/19/18 10/18/18 History simvastatin 40 mg PO PM 04/19/18 10/18/18 History triamcinolone acetonide 1 applic TOPICAL UD PRN 04/19/18 10/18/18 History bisacodyl [Dulcolax (bisacodyl)] 5 mg PO HS 09/27/18 10/18/18 History calcipotriene [Dovonex] 1 applic TOPICAL 2XWK 09/27/18 10/18/18 History omega 2-bhm-vxc-fish oil [Fish Oil] 1 cap PO QAM 09/27/18 10/18/18 History psyllium husk [Metamucil] 2 tbsp PO BID 09/27/18 10/18/18 History vitamin E 400 unit PO QAM 09/27/18 10/18/18 History lisinopril 10 1 tab PO QAM #30 tab 10/07/18 10/18/18 Rx mg-hydrochlorothiazide 12.5 mg tablet Past Med/Surg History Medical History Premature ventricular contractions (Acute) Dyslipidemia (Chronic) Arteriosclerotic cardiovascular disease (ASCVD) (Acute) Broken back Myocardial contusion Barretts esophagus Chronic back pain SPINAL MANIPULATION DONE MONTHLY GERD (gastroesophageal reflux disease) Hypertension Irregular heart beat Meniere disease Vertigo Surgical History Fusion of spine LUMBAR History of adenoidectomy History of cardiac cath 2005 History of colonoscopy History of ear surgery RADICAL SURGERY ON LEFT EAR INCLUDING into the COCHLEAR History of esophagogastroduodenoscopy (EGD) History of heart artery stent 2006- STENT PLACED History of herniorrhaphy History of tonsillectomy History of tooth extraction Family History Father Family history of diabetes mellitus Social History Preferred Language: Austrian Communication Ability: Effective 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 Beliefs That Will Affect Care: None Current Living Situation: Spouse Feels Safe at Home: Yes Smoking Status: Never smoker Second Hand Exposure: Yes ( environment) ; Hx Alcohol Use: No Hx Substance Use: No Review of Systems Review of Systems: All systems reviewed & are unremarkable except as noted in HPI & below Physical Exam Constitutional: WD/WN, vitals as above well developed Eyes: PERRL, conjunctivae normal, anicteric sclerae ENMT: external ear and nose normal, oropharynx normal Neck: trachea midline, no thyromegaly Cardiovascular: Rate/Rhythm: + irregularly irregular Heart Sounds: normal S1 and normal S2 Palpation: normal PMI Vessels: normal peripheral pulses Extremities: normal capillary refill Gastrointestinal (Abdomen): normal bowel sounds, soft, nontender, no hepatosplenomegaly Musculoskeletal: no cyanosis or clubbing, extremities motor strength 5/5 Skin: no rashes, warm and dry Neurologic: patellar DTR's 2+ bilat, sensation intact Psychiatric: A+Ox3, euthymic affect Lymphatic: no cervical or axillary lymphadenopathy Results & Data Vital Signs (Past 12 Hours) Vital Signs Temp Pulse Resp BP Pulse Ox 10/18/18 14:31 97 H 19 124/70 91 10/18/18 14:16 108 H 19 105/51 L 94 10/18/18 14:00 108 H 15 138/74 95 10/18/18 13:45 103 H 19 117/84 95 10/18/18 13:30 89 15 112/78 91 10/18/18 13:15 96 H 21 149/71 H 97 10/18/18 13:00 93 H 20 139/67 98 10/18/18 12:45 87 22 138/61 94 10/18/18 12:15 106 H 15 152/78 H 96 10/18/18 11:47 36.8 C 127 H 20 167/80 H 97 Code Status & VTE Plan Code Status Full code VTE Prophylaxis Plan VTE Prophylaxis will be ordered: Yes PG Care Time/CCT Total # of Minutes Spent Total Time Spent with Patient: Total time spent is greater than 50% in coordination of care (as documented) at patient's floor/unit and/or counseling patient:
[2018-10-18] MEDS ORDERED: ZOLPIDEM TARTRATE 5 MG TAB PO PRN (16:35)
[2018-10-18] MEDS ORDERED: ALUMINUM/MAGNESIUM SUSP 30 ML UDC PO PRN (16:35)
[2018-10-18] MEDS ORDERED: ACETAMINOPHEN 325 MG TAB PO PRN (16:35)
[2018-10-18] MEDS ORDERED: ONDANSETRON INJ 2 MG/ML 2 ML VIAL IV PRN (16:35)
[2018-10-18] MEDS ORDERED: TRIAMCINOLONE ACET 0.1% CR 15 GM TUBE TOP PRN (16:35)
[2018-10-18] MEDS ORDERED: MAGNESIUM HYDROXIDE SUSP 30 ML UDC PO PRN (16:35)
[2018-10-18] MEDS ORDERED: NITROGLYCERIN SL 0.4 MG/TAB TAB SL PRN ×2 (16:35)
[2018-10-18] MEDS ORDERED: POLYETHYLENE (MIRALAX) 17 GM PACK PO PRN (16:35)
[2018-10-18] MEDS ORDERED: Heparin IV Standard *NO* Bolus IV SCH (16:45)
[2018-10-18] MEDS ORDERED: dilTIAZem HCl 125 MG in DEXTROSE 5% 100 ML IV SCH (17:15)
--- NOTE | 2018-10-18 17:52 | Cardiology Consultation ---
Date of Consultation October 18, 2018 Assessment & Plan (1) Atrial fibrillation, rapid: He was completely asymptomatic. This could have been exacerbated by the colonoscopy prep but because he is asymptomatic, it is difficult to know if he has other episodes. He has spontaneously converted to sinus rhythm based on telemetry review. Would recommend anticoagulation for stroke risk reduction. Consider Eliquis on discharge. Currently on heparin drip. We discussed the diagnosis as well as stroke risk. Will restart home dose of [id number] mg twice daily. Diltiazem drip can be discontinued now that he has converted to sinus rhythm. Repeat ECG to document sinus rhythm, which is currently noted on telemetry. TSH, magnesium, and potassium levels normal. (2) CAD (coronary artery disease): Status post LAD PCI in 2006. No angina. Continue aspirin 81 mg daily indefinitely. Continue beta-leander and statin therapy. (3) Presence of stent in artery: Continue anti-platelet therapy as noted above. (4) Hypertension: Blood pressure normotensive to mildly hypertensive. Resume home antihypertensive agents. Disposition: Now that he appears to be in sinus rhythm based on telemetry review, he can be discharged from a cardiac standpoint. Would check an echo, but this can be done as an outpatient. Follow up closely with his primary chicken and fish cleaner, Dr. Almaraz. He states that he already has an appointment scheduled in approximately 2 weeks. Patient care discussed with admitting physician, Dr. Lucas. Thank you for allowing me to participate in the care of your patient. Please call for any other questions or concerns. Sincerely, Denny West M.D. History of Present Illness Reason for Consultation: Atrial fibrillation with rapid ventricular response Requesting Physician: Mary Lucas MD Attending Physician: Mary Lucas MD History of Present Illness Mr. Smith is a pleasant 73-year-old gentleman with a history significant for CAD status post [place] and LAD PCI in February of 2006, hypertension, and dyslipidemia. He was referred to the emergency department when he presented for outpatient elective colonoscopy and was found to be in atrial fibrillation with rapid ventricular response. His primary chicken and fish cleaner is Dr. Almaraz. He was completely asymptomatic in regards to atrial fibrillation. He does not know the onset. He denies chest pain, shortness of breath, palpitations, syncope, near-syncope, edema, or bleeding such as melena, hematochezia, or hematuria. He admits to occasional extra beats ever since he was a child but nothing recently in regards to palpitations. He does admit to having some cramping in his legs after having profuse diarrhea from the prep. He is currently asymptomatic. He does have a rash on his abdomen which he refers to as singles stating that he was recently treated by his PCP. He was admitted by the hospitalist service and started on a heparin drip as well as a diltiazem drip. Just prior to my evaluation, he converted to sinus rhythm. He denies a history of stroke or TIA. Review of systems: As above. Review of systems otherwise negative/unremarkable. Family history: No known premature CAD. Social history: He denies tobacco, alcohol, or drug abuse. He lives at home with his . They have 4 children. One of his sons is a assembler finger buffs here at [facility]. He was unaccompanied. Allergies Allergy/AdvReac Type Severity Reaction Status Date / Time pollen extracts Allergy Mild ENVIRONMENTAL Verified 10/18/18 13:16 ALLERGIES Home Medications Home Medications Medication Instructions Recorded Confirmed Type Centrum Silver Men 1 tab PO QPM 04/19/18 10/18/18 History aspirin [Aspir-Low] 81 mg PO QAM 04/19/18 10/18/18 History cholecalciferol (vitamin D3) 1,000 unit PO QPM 04/19/18 10/18/18 History [Vitamin D3] metoprolol tartrate 50 mg PO BID 04/19/18 10/18/18 History nitroglycerin 1 tab SUBLINGUAL UD PRN 04/19/18 10/18/18 History omeprazole 20 mg PO BID 04/19/18 10/18/18 History simvastatin 40 mg PO PM 04/19/18 10/18/18 History triamcinolone acetonide 1 applic TOPICAL UD PRN 04/19/18 10/18/18 History bisacodyl [Dulcolax (bisacodyl)] 5 mg PO HS 09/27/18 10/18/18 History calcipotriene [Dovonex] 1 applic TOPICAL 2XWK 09/27/18 10/18/18 History omega 4-kxu-lkj-fish oil [Fish Oil] 1 cap PO QAM 09/27/18 10/18/18 History psyllium husk [Metamucil] 2 tbsp PO BID 09/27/18 10/18/18 History vitamin E 400 unit PO QAM 09/27/18 10/18/18 History lisinopril 10 1 tab PO QAM #30 tab 10/07/18 10/18/18 Rx mg-hydrochlorothiazide 12.5 mg tablet Patient History Medical History Premature ventricular contractions (Acute) Dyslipidemia (Chronic) Arteriosclerotic cardiovascular disease (ASCVD) (Acute) Broken back Myocardial contusion Barretts esophagus Chronic back pain SPINAL MANIPULATION DONE MONTHLY GERD (gastroesophageal reflux disease) Hypertension Irregular heart beat Meniere disease Vertigo Surgical History Fusion of spine LUMBAR History of adenoidectomy History of cardiac cath 2005 History of colonoscopy History of ear surgery RADICAL SURGERY ON LEFT EAR INCLUDING into the COCHLEAR History of esophagogastroduodenoscopy (EGD) History of heart artery stent 2005- STENT PLACED History of herniorrhaphy History of tonsillectomy History of tooth extraction Family History Father Family history of diabetes mellitus Social History Preferred Language: Comoran Communication Ability: Effective Director Of Officiating Required: No Beliefs That Will Affect Care: None Current Living Situation: Spouse Feels Safe at Home: Yes Smoking Status: Never smoker Second Hand Exposure: Yes ( environment) ; Hx Alcohol Use: No Hx Substance Use: No Physical Exam Physical Exam: Gen.: No acute distress. Alert and oriented. HEENT: Anicteric sclera. Neck: No JVD. No bruits. Normal carotid upstrokes bilaterally. Cardiac: PMI was nondisplaced. No ventricular heave. Regular. Normal S1-S2. No murmurs, rubs, or gallops. Pulmonary: Clear to auscultation bilaterally without wheezes, rales, or rhonchi. Abdomen: Soft, nontender, nondistended, with normoactive bowel sounds. No bruits noted. Erythematous rash noted on abdomen. No visualized vesicles/papules. Extremities: 2+ radial pulses bilaterally. 2+ posterior tibialis pulses bilaterally. No edema or cyanosis. No palpable cords. Psychiatric: Affect appears appropriate. Results & Data Vital Signs (Past 12 Hours) Vital Signs Temp Pulse Resp BP Pulse Ox 10/18/18 16:16 108 H 20 126/74 92 10/18/18 16:00 108 H 20 126/74 92 10/18/18 15:45 122 H 13 149/77 H 96 10/18/18 15:30 109 H 18 156/74 H 93 10/18/18 15:15 116 H 23 152/102 H 95 10/18/18 15:00 114 H 21 140/70 94 10/18/18 14:45 117 H 30 H 156/107 H 96 10/18/18 14:31 97 H 19 124/70 91 10/18/18 14:16 108 H 19 105/51 L 94 10/18/18 14:00 108 H 15 138/74 95 10/18/18 13:45 103 H 19 117/84 95 10/18/18 13:30 89 15 112/78 91 10/18/18 13:15 96 H 21 149/71 H 97 10/18/18 13:00 93 H 20 139/67 98 10/18/18 12:45 87 22 138/61 94 10/18/18 12:15 106 H 15 152/78 H 96 10/18/18 11:47 36.8 C 127 H 20 167/80 H 97 Laboratory Results Laboratory Results - last 24 hr 10/18/18 10/18/18 10/18/18 12:24 12:24 12:24 WBC 8.86 RBC 5.00 Hgb 15.6 Hct 45.5 MCV 91.0 MCH 31.2 MCHC 34.3 RDW Std Deviation 44.7 RDW Coeff of Lona 13.8 Plt Count 234 MPV 9.8 Immature Gran % (Auto) 0.7 Neut % (Auto) 76.5 Lymph % (Auto) 10.5 Tompkins % (Auto) 11.1 Eos % (Auto) 1.0 Baso % (Auto) 0.2 Immature Gran # (Auto) 0.06 H Neut # (Auto) 6.78 H Lymph # (Auto) 0.93 L Tompkins # (Auto) 0.98 H Eos # (Auto) 0.09 Baso # (Auto) 0.02 PT 10.7 INR 1.0 APTT 27.6 PTT Ratio 1.0 Sodium 138 Potassium 4.4 Chloride 105 Carbon Dioxide 25 Anion Gap 8.0 BUN 19 H Creatinine 1.31 Est Cr Clr Drug Dosing 48.9 Est GFR ( Amer) 61.7 Est GFR (Non-Af Amer) 53.3 BUN/Creatinine Ratio 14.9 Glucose 96 Calcium 8.4 L Magnesium 2.4 Total Bilirubin 1.2 H AST 29 ALT 33 Alkaline Phosphatase 94 Troponin I < 0.015 Total Protein 7.3 Albumin 3.4 Globulin 3.9 Albumin/Globulin Ratio 0.9 Lipase 114 TSH 0.554 10/18/18 12:24 WBC RBC Hgb Hct MCV MCH MCHC RDW Std Deviation RDW Coeff of Lona Plt Count MPV Immature Gran % (Auto) Neut % (Auto) Lymph % (Auto) Tompkins % (Auto) Eos % (Auto) Baso % (Auto) Immature Gran # (Auto) Neut # (Auto) Lymph # (Auto) Tompkins # (Auto) Eos # (Auto) Baso # (Auto) PT INR APTT PTT Ratio Sodium Potassium Chloride Carbon Dioxide Anion Gap BUN Creatinine Est Cr Clr Drug Dosing Est GFR ( Amer) Est GFR (Non-Af Amer) BUN/Creatinine Ratio Glucose Calcium Magnesium Cancelled Total Bilirubin AST ALT Alkaline Phosphatase Troponin I Total Protein Albumin Globulin Albumin/Globulin Ratio Lipase TSH Cancelled Diagnostic Findings Telemetry personally reviewed: Atrial fibrillation converted to sinus rhythm. ECG personally reviewed 10/18/2018: Atrial fibrillation with rapid ventricular response 117 bpm. Nonspecific T-wave abnormality. Chest x-ray 10/18/2018: No acute cardiopulmonary abnormality as per Radiology. Medications Administered Current Inpatient Medications Acetaminophen (Tylenol) 650 mg PO Q4H PRN PRN Reason: Pain or Fever Stop: 11/17/18 16:34 Al Hydrox/Mg Hydrox/Simethicone (Maalox) 15 ml PO Q4H PRN PRN Reason: Dyspepsia Stop: 11/17/18 16:34 Aspirin (Ecotrin Ectab) 81 mg PO QAM RACHEL Stop: 11/18/18 08:59 Bisacodyl (Dulcolax) 5 mg PO HS RACHEL Stop: 11/17/18 20:59 Fish Oil ([place]-3 (Purified Fish Oil)) 1 gm PO QAM RACHEL Stop: 11/18/18 08:59 Lisinopril/HCTZ (Prinzide 10/12.5mg) 1 tab PO QAM RACHEL Stop: 11/18/18 08:59 Heparin Sodium/Dextrose () 1 ea IV Q10M RACHEL; Protocol Stop: 11/17/18 16:44 Last Admin: 10/18/18 17:34 Dose: 1 ea Documented by: Heparin Sodium/Dextrose (Heparin Sodium/Dextrose) 25,000 units in 500 mls @ 0.02 mls/hr IV .Q24H RACHEL; Protocol Stop: 11/17/18 13:44 Last Titration: 10/18/18 16:38 Dose: 1,250 units/hr, 25 mls/hr Documented by: Magnesium Hydroxide (Milk Of Magnesia) 30 ml PO Q12H PRN PRN Reason: Constipation Stop: 11/17/18 16:34 Metoprolol Tartrate (Lopressor) 50 mg PO BID RACHEL Stop: 11/17/18 20:59 Miscellaneous (Order Awaiting Action) 1 ea N/A QS RACHEL Stop: 11/18/18 00:00 Multivitamins (Multivitamin Tab) 1 tab PO QPM RACHEL Stop: 11/17/18 20:59 Nitroglycerin (Nitrostat) 0.4 mg SL UD PRN PRN Reason: Chest Pain Stop: 11/17/18 16:34 Ondansetron HCl (Zofran) 4 mg IV Q6H PRN PRN Reason: Nausea Stop: 11/17/18 16:34 Pantoprazole Sodium (Protonix) 40 mg PO BID RACHEL Stop: 11/17/18 20:59 Polyethylene Glycol (Miralax Powder Packet) 17 gm PO DAILY PRN PRN Reason: Constipation Stop: 11/17/18 16:34 Psyllium Hydrophilic Mucilloid (Metamucil) 2 pkt PO BID RACHEL Stop: 11/17/18 20:59 Simvastatin (Zocor) 40 mg PO PM RACHEL Stop: 11/17/18 20:59 Triamcinolone Acetonide (Kenalog 0.1%) 1 appln TOP QAM PRN PRN Reason: psorasis Stop: 11/17/18 16:34 Vitamin D (Vitamin D3) 1,000 units PO QPM RACEHL Stop: 11/17/18 20:59 Vitamin E (Vitamin E) 400 units PO QAM RACHEL Stop: 11/18/18 08:59 Zolpidem Tartrate (Ambien) 5 mg PO HS PRN PRN Reason: Sleep Stop: 11/17/18 16:34 PG Care Time/CCT Total # of Minutes Spent Total Time Spent with Patient: Total time spent is greater than 50% in coordination of care (as documented) at patient's floor/unit and/or counseling patient:
[2018-10-18] MEDS: PANTOprazole 40 MG TAB PO SCH (20:21)
[2018-10-18] MEDS: PSYLLIUM 58.6% POWDER PACKET PO SCH (20:21)
[2018-10-18] MEDS: METOPROLOL TARTRATE 50 MG TAB PO SCH (20:23)
[2018-10-18 20:38] LABS: Partial Thromboplastin Ratio 1.6; Partial Thromboplastin Time 44.2 Seconds (21.0-31.0)
[2018-10-18] MEDS ORDERED: MULTIVITAMIN TAB PO SCH (21:00)
[2018-10-18] MEDS ORDERED: CHOLECALCIFEROL 1,000 UNITS TAB PO SCH (21:00)
[2018-10-18] MEDS ORDERED: BISACODYL 5 MG TABEC PO SCH (21:00)
[2018-10-18] MEDS ORDERED: SIMVASTATIN 40 MG TAB PO SCH (21:00)
[2018-10-18] MEDS ORDERED: HEPARIN IV BOLUS 3,000 UNITS in SYRINGE 0 ML IV ONE (21:30)
[2018-10-19] MEDS ORDERED: APIXABAN 5 MG TABLET PO SCH
[2018-10-19 04:07] LABS: Basophils # (auto) 0.02 K/uL (0-0.2); Basophils % (auto) 0.2 %; Eosinophils # (auto) 0.38 K/uL (0-0.5); Eosinophils % (auto) 4.7 %; Hematocrit (blood only) 39.7 % (42-52); Hemoglobin 13.5 g/dL (14.0-18.0); Immature Granulocytes # (auto) 0.06 K/uL (0.00-0.02); Immature Granulocytes % (auto) 0.7 %; Lymphocytes # (auto) 1.91 K/uL (1.2-3.4); Lymphocytes % (auto) 23.4 %; Mean Corpuscular Volume 89.4 fL (80-100); Monocytes # (auto) 0.93 K/uL (0.11-0.59); Monocytes % (auto) 11.4 %; Neutrophils # (auto) 4.87 K/uL (1.4-6.5); Neutrophils % (auto) 59.6 %; Platelet Count 204 K/uL (130-400); RDW Coefficient of Variation 13.8 % (11.5-14.5); RDW Standard Deviation 44.8 fL (36.4-46.3); Red Blood Count 4.44 M/uL (4.7-6.1); White Blood Count 8.17 K/uL (4.8-10.8)
[2018-10-19 04:32] LABS: Partial Thromboplastin Time 136.3 Seconds (21.0-31.0)
[2018-10-19 04:34] LABS: Albumin Level 2.9 gm/dl (3.4-5.0); BUN Creatinine Ratio 18.8 (10-20); Calcium 7.8 mg/dl (8.5-10.1); Creatinine Clr Calc Pharmacy 43.9 ml/min; Est GFR (African American) 56.5; Est GFR (Non-African American) 48.7; Potassium 3.7 mmol/L (3.5-5.1)
[2018-10-19 04:45] LABS: Albumin Globulin Ratio 0.9 (0.9-2); Bilirubin,Total 1.4 mg/dl (0.2-1); Globulin 3.4 gm/dl (2.5-4.0); Total Protein 6.3 gm/dl (6.4-8.2)
[2018-10-19 06:22] LABS: Partial Thromboplastin Time 80.9 Seconds (21.0-31.0)
[2018-10-19 07:20] LABS: Estimated Average Glucose 134 mg/dl; Hemoglobin A1C 6.3 % (4.5-5.6)
[2018-10-19] MEDS: PSYLLIUM 58.6% POWDER PACKET PO SCH (07:39)
[2018-10-19] MEDS: PANTOprazole 40 MG TAB PO SCH (07:40)
[2018-10-19] MEDS: METOPROLOL TARTRATE 50 MG TAB PO SCH (07:40)
[2018-10-19] MEDS ORDERED: ASPIRIN 81 MG ECTAB PO SCH (09:00)
[2018-10-19] MEDS ORDERED: OMEGA-3 (PURIFIED FISH OIL) 1 GM CAP PO SCH (09:00)
[2018-10-19] MEDS ORDERED: LISINOPRIL/HCTZ 10/12.5MG TAB PO SCH (09:00)
[2018-10-19] MEDS ORDERED: TOCOPHERYL, DL-ALPHA 400 UNITS CAP PO SCH (09:00)
[2018-10-19] MEDS: HEPARIN SODIUM/DEXTROSE 25,000 UNITS/500 ML BAG IV SCH (11:25)
--- NOTE | 2018-10-21 22:21 | Discharge Summary ---
Date of Service October 19, 2018 Admission HPI Per Admitting Provider Patient is a 73 years old male with past medical history of hypertension, dyslipidemia, atrial premature complexes, coronary artery disease, Guzman's esophagus, no new disease presents today to have colonoscopy and it was noted that he had atrial fibrillation's with RVR on his EKG at that point.Patient was asymptomatic. Patient denies fever chills chest pain shortness of breath abdominal pain frequency urgency dysuria hematuria melena hemoptysis hematochezia nausea or vomiting. Patient did bowel prep last night and yesterday and he did not eat anything since Sunday. EKG is reviewed: Which shows atrial fibrillation with rapid ventricular response, minimal voltage LVH and nonspecific T wave abnormalities in V2 through V4. Labs are reviewed and showed viable cell of 8.6, hemoglobin 15.6, hematocrit 45.5 platelets 234., PT 10.7, INR 1 APTT 26.5, sodium 138, potassium 4.4, chloride 105, anion gap 8, BUN 19, creatinine 1.31, GFR 53.3, total bilirubin 1.2, calcium 8.4, AST 29 ALT 33, troponin 0 0.015. Chest x-ray show no acute cardiopulmonary abnormality. Patient was immediately started on diltiazem drip and heparin drip for new onset of A. fib's. Echocardiogram pending. Cardiology consult placed. Decision was made to admit patient to PCU on telemetry and continue drip until patient converted been normal sinus rhythm. Principal Diagnosis Paroxysmal atrial fibrillation Discharge Exam Constitutional WD/WN, vitals as above Eyes PERRL, conjunctivae normal, anicteric sclerae ENMT external ear and nose normal, oropharynx normal Neck trachea midline, no thyromegaly Respiratory normal respiratory effort, lungs clear to auscultation Cardiovascular RRR, no murmur, no edema Gastrointestinal (Abdomen) normal bowel sounds, soft, nontender, no hepatosplenomegaly Musculoskeletal no cyanosis or clubbing, extremities motor strength 5/5 Skin no rashes, warm and dry Neurologic patellar DTR's 2+ bilat, sensation intact and PERRL, EOMI, accommodation nl, no face palsy, no dysarthria Psychiatric A+Ox3, euthymic affect Lymphatic no cervical or axillary lymphadenopathy Discharge Data Allergies Allergy/AdvReac Type Severity Reaction Status Date / Time pollen extracts Allergy Mild ENVIRONMENTAL Verified 10/25/18 10:11 ALLERGIES Consultations 10/18/18 13:34 ED Decision to Admit Stat 10/18/18 16:35 Consult Cardiology Routine Hospital Course (1) Atrial fibrillation, rapid: resolved quickly with Diltiazem drip in normal sinus rhythm in the morning continue on Metoprolol 50mg BID treated with heparin drip initially for anticoagulation cardiology recommends NOAC on discharge send home on Eliquis 5mg BID follow up with PCP and cardiology (2) Guzman's esophagus: Stable at this time (3) CAD (coronary artery disease): Continue Aspirin 81 mg p.o. , lisinopril 10 mg/hydrochlorothiazide 12.5 mg tablet, metoprolol tartrate 50 mg p.o. twice daily (4) Psoriasis: Stable continue Dovonex 1 application topical every 2 weeks, continue vitamin E 400 mg p.o. every morning, triamcinolone at second need 1 application topical as needed and as directed. (5) Dyslipidemia: Continue simvastatin 40 mg p.o. every afternoon, fish oil (6) Arteriosclerotic cardiovascular disease (ASCVD): As the above Total Time Total Time Spent Total Time Spent (In Minutes): 35 minutes Discharge Plan Discharge Items Patient Disposition: Home - Self-Care Reason For Visit: A FIB WITH RVR Condition on Discharge: Good Activity: Resume your previous activity Non-emergency contact: Primary Care Provider and Asset Management Lead Follow-up/Referrals: Marlys Oneill MD [Primary Care Provider] - Juan Benzene Washer Provider Instructions: Medications: - ELIQUIS: take 5mg twice a day our pharmacy will release 3 doses for the weekend, start taking this evening Paroxysmal atrial fibrillation with rapid response completely resolved with Diltiazem drip, resumed on metoprolol treated with heparin drip for stroke prevention Dr. West recommends that you take Eliquis 5mg twice a day for further stroke prevention recommend that you follow up with Dr. Almaraz to discuss further FOLLOW UP - keep appt with Dr. Almaraz in two weeks to discuss the afib and further anticoagulation Stand-Alone Forms: My [facility] Medications and DC Order Prescriptions: New Eliquis 5 mg tablet 5 mg PO BID Qty: 60 RF: 0 Continued lisinopril-hydrochlorothiazide 10-12.5 mg tablet 1 tab PO QAM Qty: 30 RF: 3 calcipotriene [Dovonex] 0.005 % Cream 1 applic TOPICAL 2XWK RF: 0 vitamin E 400 unit Capsule 400 unit PO QAM RF: 0 omega 9-hmf-bex-fish oil [Fish Oil] 1,000 mg (120 mg-180 mg) Capsule 1 cap PO QAM RF: 0 bisacodyl [Dulcolax (bisacodyl)] 5 mg Tablet,Delayed Release (Dr/Ec) 5 mg PO HS RF: 0 Metamucil 3.4 gram/5.4 gram Powder 2 tbsp PO BID RF: 0 triamcinolone acetonide 0.025 % Lotion 1 applic TOPICAL UD PRN (Reason: psorasis) RF: 0 aspirin [Aspir-Low] 81 mg Tablet,Delayed Release (Dr/Ec) 81 mg PO QAM RF: 0 simvastatin 40 mg Tablet 40 mg PO PM RF: 0 nitroglycerin 0.4 mg Tablet, Sublingual 1 tab Sublingual UD PRN (Reason: Chest Pain) RF: 0 omeprazole 20 mg Tablet,Delayed Release (Dr/Ec) 20 mg PO BID RF: 0 metoprolol tartrate 50 mg Tablet 50 mg PO BID RF: 0 cholecalciferol (vitamin D3) [Vitamin D3] 1,000 unit Tablet 1,000 unit PO QPM RF: 0 Centrum Silver Men 300-600-300 mcg Tablet 1 tab PO QPM RF: 0 No Action saw palmetto fruit 450 mg capsule 450 mg PO DAILY RF: 0 Discharge Orders: Discharge Order (Routine); Ordered 10/19/18 Ordered By: Ludwig Medrano Admission Data Admit Date/Time: 10/18/18 15:25 Attending Provider: Ludwig Medrano Admit Provider: Mary Lucas Primary Care Provider: Marlys Oneill Other Providers: Mary Lucas ; Luigi West Other Interventions: Discharge Summary Assessment (RN) Last Done: 10/19/18 11:54 DC Date/Time DO NOT enter until pt leaves facility: 10/19/18 12:57
== END 2018-10-19 12:57 | disposition home or self-care (01) | DRG 310 ==
LOC: ED 11:42 → SUATTDRO 15:25 → 2S 15:25

== ENCOUNTER 2018-12-30 15:23 | Inpatient (IN) ==
[2018-12-30] MEDS ORDERED: dilTIAZem HCl 125 MG in DEXTROSE 5% 100 ML IV SCH (16:15)
--- NOTE | 2018-12-30 16:17 | Emergency Department Note ---
Entered by Jamia Cordoba acting as a scribe for Domingo Moss DO History of Present Illness General Chief complaint: Chest Pain Stated complaint: CHEST PAIN, TACHYCARDIA, SOB Source: patient History of Present Illness Provider complaint: Chest pain Onset (ago): day(s) 1 Location: chest Severity: mild Pain Consistency: + intermittent Maximum Pain Intensity: 5 Quality: + other ("tightness") Associated symptoms: + denies other symptoms (arm pain, jaw pain, rhinorrhea, swelling in calves, new cough, diarrhea) and + other (felt heartrate "racing" and "going in and out of A-fib", central chest "heaviness"); no nausea/vomiting Patient is a 73-year-old male with a past medical history of A. fib who takes Eliquis who follows with Dr. Almaraz and presents the ER for chest tightness is been present since this past Sunday. He notes on Sunday he felt like his heart rate was going in and out of A. fib as it was racing. It did resolve Sunday morning. He was doing well as he was helping put a roof on his house. His symptoms started back up to get a again. He denies any arm pain or jaw pain. He admits to a chest heaviness which stays in the middle of his chest associated with his heart racing. He called EMS and they gave him 15 mg of Cardizem along with 324 of aspirin. He notes his heart racing has resolved. He does feel like he still has some mild tightness on his chest. No nausea vomiting or diarrhea. No swelling of the calves no new cough or runny nose. Home Medications Home Medications Medication Instructions Recorded Confirmed Type Centrum Silver Men 1 tab PO QPM 04/19/18 12/30/18 History aspirin [Aspir-Low] 81 mg PO QAM 04/19/18 12/30/18 History cholecalciferol (vitamin D3) 1,000 unit PO QPM 04/19/18 12/30/18 History [Vitamin D3] nitroglycerin 1 tab SUBLINGUAL UD PRN 04/19/18 12/30/18 History omeprazole 20 mg PO BID 04/19/18 12/30/18 History simvastatin 40 mg PO PM 04/19/18 12/30/18 History triamcinolone acetonide 1 applic TOPICAL UD PRN 04/19/18 12/30/18 History Metamucil 2 tbsp PO BID 09/27/18 12/30/18 History bisacodyl [Dulcolax (bisacodyl)] 5 mg PO HS 09/27/18 12/30/18 History calcipotriene [Dovonex] 1 applic TOPICAL 2XWK 09/27/18 12/30/18 History omega 9-igy-rca-fish oil [Fish Oil] 1 cap PO QAM 09/27/18 12/30/18 History vitamin E 400 unit PO QAM 09/27/18 12/30/18 History lisinopril 10 1 tab PO QAM #30 tab 10/07/18 12/30/18 Rx mg-hydrochlorothiazide 12.5 mg tablet saw palmetto fruit 450 mg capsule 450 mg PO DAILY cap 10/25/18 12/30/18 History apixaban 5 mg tablet 5 mg PO BID #180 tab 11/22/18 12/30/18 Rx metoprolol tartrate 50 mg PO BID 12/30/18 12/30/18 History Allergies Allergy/AdvReac Type Severity Reaction Status Date / Time pollen extracts Allergy Mild ENVIRONMENTAL Verified 10/25/18 10:11 ALLERGIES Past Med/Surg History Medical History Arteriosclerotic cardiovascular disease (ASCVD) (Acute) Barretts esophagus Broken back Chronic back pain SPINAL MANIPULATION DONE MONTHLY Dyslipidemia (Chronic) GERD (gastroesophageal reflux disease) Hypertension Irregular heart beat Meniere disease Myocardial contusion Premature ventricular contractions (Acute) Vertigo Surgical History Fusion of spine LUMBAR History of adenoidectomy History of cardiac cath 2005 History of colonoscopy History of ear surgery RADICAL SURGERY ON LEFT EAR INCLUDING into the COCHLEAR History of esophagogastroduodenoscopy (EGD) History of heart artery stent 2006-1 STENT PLACED History of herniorrhaphy History of tonsillectomy History of tooth extraction Family History (Updated 12/30/18 @ 18:50 by Emilee Kline DO) Father Family history of diabetes mellitus Myocardial infarction Mother Myocardial infarction Social History Preferred Language: [place] Korean Communication Ability: Effective Immunology Specialist Required: No Beliefs That Will Affect Care: None Current Living Situation: Spouse Other Information That Helps Us Care for You: No Feels Safe at Home: Yes Safety Concerns: Feels Safe At This Time Smoking Status: Never smoker Second Hand Exposure: Yes ( environment) ; Hx Alcohol Use: No Hx Substance Use: No Review of Systems See HPI for pertinent positives & negatives. and A total of 10 systems reviewed and were otherwise negative Physical Exam Vital Signs Vital Signs - 24 hr 12/30/18 15:43 12/30/18 15:46 12/30/18 16:38 Temperature 36.7 C Temperature Source Oral Pulse Rate 102 H Pulse Rate [Right Finger] 92 H Respiratory Rate 17 16 Respiratory Effort / Characteristics Non-Labored Respiratory Depth Normal Blood Pressure 124/87 Blood Pressure [Right Arm] 122/71 Blood Pressure Mean 99 Blood Pressure Mean [Right Arm] 88 Pulse Oximetry 96 97 94 Oxygen Delivery Method Room Air Room Air Room Air Sepsis Recent Fever Within 48 Hours No Sepsis Action Taken by Nursing No Action Required 12/30/18 16:40 12/30/18 16:58 12/30/18 17:05 Temperature Temperature Source Pulse Rate Pulse Rate [Right Finger] 97 H 106 H 95 H Respiratory Rate 20 18 18 Respiratory Effort / Characteristics Respiratory Depth Blood Pressure Blood Pressure [Right Arm] 119/61 130/79 130/75 Blood Pressure Mean Blood Pressure Mean [Right Arm] 80 96 93 Pulse Oximetry 94 94 94 Oxygen Delivery Method Room Air Sepsis Recent Fever Within 48 Hours Sepsis Action Taken by Nursing 12/30/18 17:20 12/30/18 18:15 12/30/18 18:30 Temperature Temperature Source Pulse Rate Pulse Rate [Right Finger] 96 H 85 86 Respiratory Rate 18 16 21 Respiratory Effort / Characteristics Non-Labored Respiratory Depth Normal Blood Pressure Blood Pressure [Right Arm] 110/71 125/70 117/69 Blood Pressure Mean Blood Pressure Mean [Right Arm] 84 88 85 Pulse Oximetry 94 94 97 Oxygen Delivery Method Room Air Room Air Sepsis Recent Fever Within 48 Hours Sepsis Action Taken by Nursing GENERAL: Sitting up in bed, no significant distress, talking in full sentences nontoxic, wearing glasses EYE EXAM: normal conjunctiva. OROPHARYNX: no exudate, no erythema, lips, buccal mucosa, and tongue normal and mucous membranes are moist NECK: supple, no nuchal rigidity, no adenopathy, non-tender LUNGS: Clear to auscultation. Normal chest wall mechanics HEART: Tachycardic and regular regular, S1 normal and S2 normal ABDOMEN: abdomen soft, non-tender, normo-active bowel sounds, no masses, no rebound or guarding. BACK: Back is symmetrical on inspection and there is no deformity, no midline tenderness, no CVA tenderness. SKIN: no rashes and no bruising UPPER EXTREMITIES: upper extremities are grossly normal. LOWER EXTREMITIES: No pitting edema. Calves are equal bilateral NEURO EXAM: Normal sensorium, cranial nerves II-XII grossly intact, normal speech, no gross weakness of arms, no gross weakness of legs. Course Course ED COURSE: Vital signs were reviewed and showed tachycardia The patients medical record was reviewed The above diagnostic studies were performed and reviewed. ED treatments and interventions as stated above. 1610: The patient was evaluated in room C04. A complete history and physical examination was performed. 1819: Upon reevaluation, the patient is resting.I discussed my findings with the him and he understands and agrees with the treatment plan. Based on the patients age, coexisting illnesses, exam and lab findings the decision to treat as an inpatient was made. The patient remained stable while under my care. The patient will be evaluated for further management under the care of Dr. Josselyn Kline, [facility] Administ[facility] Medications Bisacodyl (Dulcolax) 5 mg PO HS [facility] Stop: 01/29/19 20:59 Last Admin: 12/30/18 21:12 Dose: 5 mg Documented by: [id number] Diltiazem HCl 125 mg/ Dextrose 125 mls @ 0 mls/hr IV .Q0M RACHEL; Protocol Stop: 01/29/19 16:14 Last Titration: 12/30/18 23:12 Dose: 0 mg/hr, 0 mls/hr Documented by: [id number] Cosigned by: [id number] Admin: 12/30/18 16:35 Dose: 5 mg/hr, 5 mls/hr Documented by: [id number] Cosigned by: [id number] Metoprolol Tartrate (Lopressor) 50 mg PO BID RACHEL Stop: 01/29/19 20:59 Last Admin: 12/30/18 21:07 Dose: 50 mg Documented by: [id number] Multivitamins/Minerals (Multivitamin W/ Minerals Tab) 1 tab PO QPM RACHEL Stop: 01/29/19 20:59 Last Admin: 12/30/18 21:09 Dose: 1 tab Documented by: [id number] Pantoprazole Sodium (Protonix) 40 mg PO BID RACHEL Stop: 01/29/19 20:59 Last Admin: 12/30/18 21:08 Dose: 40 mg Documented by: [id number] Psyllium Hydrophilic Mucilloid (Metamucil) 1 pkt PO BID RACHEL Stop: 01/29/19 20:59 Last Admin: 12/30/18 21:09 Dose: 1 pkt Documented by: [id number] Simvastatin (Zocor) 40 mg PO PM RACHEL Stop: 01/29/19 20:59 Last Admin: 12/30/18 21:09 Dose: 40 mg Documented by: [id number] Vitamin D (Vitamin D3) 1,000 units PO QPM RACHEL Stop: 01/29/19 20:59 Last Admin: 12/30/18 21:08 Dose: 1,000 units Documented by: [id number] Discontinued Medications Apixaban (Eliquis) 5 mg PO BID RACHEL Stop: 01/29/19 20:59 Last Admin: 12/30/18 21:07 Dose: 5 mg Documented by: [id number] Impression & Plan Atrial fibrillation with RVR, Chest pain, Blood glucose elevated Critical Care Time Critical Care Time: Yes Total Critical Care Time: 35 I have personally spent 35 minutes of critical care time in the direct m anagement of this patient. This includes bedside care, interpretation of diagnostic studies, and testing, discussion with consultants, patient, and family members, and other required patient management activities. This 35 minutes is in excess of all separately billable procedures. Discharge Plan Visit Data Chief Complaint: Chest Pain Stated Complaint: CHEST PAIN, TACHYCARDIA, SOB ED Provider: Domingo Moss Discharge Problem: Atrial fibrillation with RVR, Chest pain, Blood glucose elevated Patient Disposition: Being Evaluated by Hospitalist Discharge Instructions Interventions: ED Discharge Assessment Last Done: 12/30/18 19:16 Medical Decision Making Differential Diagnosis Differential diagnosis includes but is not limited to etiologies such as cardiac ischemia, aortic dissection, pulmonary embolism, pneumonia, pneumothorax, musculoskeletal, infections, pericarditis, myocarditis, esophageal rupture, gastrointestinal, as well as others were entertained. Medical Records Attestation: I reviewed the patient's medical records. Home Medications Current Medication List: was personally reviewed by me Laboratory Data Attestation: I reviewed the patient's lab results. Result diagrams: 12/30/18 15:37 12/30/18 15:37 Lab Results 12/30/18 12/30/18 Range/Units 15:37 15:37 WBC 7.74 (4.8-10.8) K/uL RBC 4.46 L (4.7-6.1) M/uL Hgb 13.9 L (14.0-18.0) g/dL Hct 41.3 L (42-52) % MCV 92.6 (80-100) fL MCH 31.2 (25-34) pg MCHC 33.7 (32-36) g/dL RDW Std Deviation 45.5 (36.4-46.3) fL RDW Coeff of Lona 13.4 (11.5-14.5) % Plt Count 246 (130-400) K/uL MPV 10.9 H (7.4-10.4) fL Immature Gran % (Auto) 0.3 % Neut % (Auto) 66.2 % Lymph % (Auto) 16.9 % Maverick % (Auto) 13.7 % Eos % (Auto) 2.6 % Baso % (Auto) 0.3 % Immature Gran # (Auto) 0.02 (0.00-0.02) K/uL Neut # (Auto) 5.13 (1.4-6.5) K/uL Lymph # (Auto) 1.31 (1.2-3.4) K/uL Maverick # (Auto) 1.06 H (0.11-0.59) K/uL Eos # (Auto) 0.20 (0-0.5) K/uL Baso # (Auto) 0.02 (0-0.2) K/uL Sodium 138 (136-145) mmol/L Potassium 3.7 (3.5-5.1) mmol/L Chloride 104 (98-107) mmol/L Carbon Dioxide 27 (21-32) mmol/L Anion Gap 7.0 (3-11) BUN 22 H (7-18) mg/dl Creatinine 1.32 (0.6-1.4) mg/dl Est Cr Clr Drug Dosing 48.7 ml/min Est GFR ( Amer) 61.2 Est GFR (Non-Af Amer) 52.8 BUN/Creatinine Ratio 17.0 (10-20) Glucose 100 H (70-99) mg/dl Calcium 8.7 (8.5-10.1) mg/dl Total Bilirubin 1.0 (0.2-1) mg/dl AST 30 (15-37) U/L ALT 36 (12-78) U/L Alkaline Phosphatase 88 (45-117) U/L Troponin I < 0.015 (0-0.045) ng/ml Total Protein 7.3 (6.4-8.2) gm/dl Albumin 3.6 (3.4-5.0) gm/dl Globulin 3.7 (2.5-4.0) gm/dl Albumin/Globulin Ratio 1.0 (0.9-2) Lipase 150 (73-393) U/L Imaging Data Radiologist's Impression: Radiology results as stated below per my review and the radiologist's interpretation: XR chest 1V portable CLINICAL HISTORY: 73 years-old Male presenting with Chest Pain. TECHNIQUE: Portable upright AP view of the chest was obtained. COMPARISON: 10/18/2018. FINDINGS: Cardiomediastinal silhouette normal. No focal opacity. No large effusion or pneumothorax. Degenerative changes of the thoracic spine. Partially visualized lumbar fusion hardware. Elevation of the left hemidiaphragm as on prior exam. I mplanted medical data analyst projects over the cardiac silhouette. IMPRESSION: 1. No acute cardiopulmonary disease. Electronically signed by: Molina Vicente M.D. 12/30/2018 4:19 PM ECG Data Attestation: I personally reviewed and interpreted this ECG as follows: Indication: + chest pain Rate (beats per minute): 102 Rhythm: + atrial fibrillation (with RVR) ECG Intervals/blocks: + Normal QT ECG [place]: + Normal ECG Findings: + PVCs and + Other (non-specific ST changes in lateral and high lateral ) Blood Pressure Blood Pressure Findings: Low blood pressure Blood Pressure Disposition: Referred to patients primary care provider [facility] Narrative Patient is a 73-year-old male with a past medical history of A. fib RVR, CAD with stent, hypertension who notes that he went into A. fib with RVR on Sunday which resolved on its own going in the Sunday. On Sunday he started to have chest heaviness which is been persistently present until today. He notes that today he went into A. fib with RVR again. He called EMS and came in. He was given 50 mg of Cardizem. Heart rate was in the 140s. Upon arrival to the ER heart rate is in the low 110s. Patient did receive aspirin as well. Chest x- ray which I personally reviewed showed no focal infiltrate. IV was established blood work was obtained and there is no significant leukocytosis or anemia.BMP along with LFTs bilirubin and lipase are unremarkable. Troponin was detectable but not positive. Chest x-ray on my review showed no focal infiltrate. EKG did show A. fib with RVR. As he was already given a bolus of Cardizem he was placed on a Cardizem drip while in the ER. Heart rate remained in the 90s. He was updated bedside. He is brought into the hospital with A. fib with RVR following Cardizem bolus by EMS and placed on Cardizem drip on the ER. Discharge Problem: Chest pain Qualifiers: Chest pain type: unspecified Qualified Code(s): R07.9 - Chest pain, unspecified The scribe's documentation has been prepared under my direction and personally reviewed by me in its entirety. I confirm that the note above accurately reflects all work, treatment, procedures, and medical decision making performed by me.
--- NOTE | 2018-12-30 16:20 | XRay Report ---
XR chest 1V portable CLINICAL HISTORY: 73 years-old Male presenting with Chest Pain. TECHNIQUE: Portable upright AP view of the chest was obtained. COMPARISON: 10/18/2018. FINDINGS: Cardiomediastinal silhouette normal. No focal opacity. No large effusion or pneumothorax. Degenerativ e changes of the thoracic spine. Partially visualized lumbar fusion hardware. Elevation of the left h emidiaphragm as on prior exam. Implanted medical radiation therapist projects over the cardiac silhouette. IMPRESSION: 1. No acute cardiopulmonary disease. Electronically signed by: Molina Vicente M.D. 12/30/2018 4:19 PM
[2018-12-30 16:34] LABS: Basophils # (auto) 0.02 K/uL (0-0.2); Basophils % (auto) 0.3 %; Eosinophils % (auto) 2.6 %; Hematocrit (blood only) 41.3 % (42-52); Hemoglobin 13.9 g/dL (14.0-18.0); Immature Granulocytes # (auto) 0.02 K/uL (0.00-0.02); Immature Granulocytes % (auto) 0.3 %; Lymphocytes # (auto) 1.31 K/uL (1.2-3.4); Lymphocytes % (auto) 16.9 %; Mean Corpuscular Hemoglobin 31.2 pg (25-34); Mean Corpuscular Hgb Conc 33.7 g/dL (32-36); Mean Corpuscular Volume 92.6 fL (80-100); Mean Platelet Volume 10.9 fL (7.4-10.4); Monocytes # (auto) 1.06 K/uL (0.11-0.59); Monocytes % (auto) 13.7 %; Neutrophils # (auto) 5.13 K/uL (1.4-6.5); Neutrophils % (auto) 66.2 %; Platelet Count 246 K/uL (130-400); RDW Coefficient of Variation 13.4 % (11.5-14.5); RDW Standard Deviation 45.5 fL (36.4-46.3); Red Blood Count 4.46 M/uL (4.7-6.1); White Blood Count 7.74 K/uL (4.8-10.8)
[2018-12-30 16:52] LABS: Alanine Aminotransferase 36 U/L (12-78); Albumin Level 3.6 gm/dl (3.4-5.0); Aspartate Aminotransferase 30 U/L (15-37); Blood Urea Nitrogen 22 mg/dl (7-18); Calcium 8.7 mg/dl (8.5-10.1); Carbon Dioxide 27 mmol/L (21-32); Chloride 104 mmol/L (98-107); Creatinine Clr Calc Pharmacy 48.7 ml/min; Est GFR (African American) 61.2; Est GFR (Non-African American) 52.8; Glucose 100 mg/dl (70-99); Lipase 150 U/L (73-393); Potassium 3.7 mmol/L (3.5-5.1); Sodium 138 mmol/L (136-145)
[2018-12-30 16:57] LABS: Alkaline Phosphatase 88 U/L (45-117); Globulin 3.7 gm/dl (2.5-4.0); Total Protein 7.3 gm/dl (6.4-8.2); Troponin I < 0.015 ng/ml (0-0.045)
--- NOTE | 2018-12-30 18:56 | History & Physical Report ---
Date of Service December 30, 2018 Assessment & Plan (1) Chest pain: Likely related to afib with RVR Pt does have hx of NV s/p stent in 2004 Trop neg x1, serials pending EKG with afib/RVR ECHO pending given afib recurrence Follows with Dr. Almaraz, c/s pending Continue cardizem drip (2) Atrial fibrillation with RVR: Uncertain as to why pt had recurrence CBC, PRP, CXR WNL TSH pending ECHO pending continue home meds, eliquis Cardizem drip, rate controlled at this time (3) Hypertension: continue home meds (4) CAD (coronary artery disease): s/p stent 2004 Aspirin 81mg (5) Dyslipidemia: continue home meds (6) GERD (gastroesophageal reflux disease): continue home meds (7) DVT prophylaxis: Eliquis History of Present Illness Primary Care Provider: Marlys Oneill MD 73 y/o M c/o chest pain. Pt states that Sunday night he noted feelings of heart racing and palpitations. This resolved and Sunday was a normal day for him. He helped a family member with putting on a roof, although he states he was down on the ground helping and not on the actual roof. He did not feel any unusual exertion with this. He states he felt fine overall on Sunday. Pt states that he started to note chest pain and return of heart racing/palps yesterday. It did resolve on its own, but then sx returned today so he called EMS. EMS noted HR in the 140s. He was given cardizem by EMS. Upon arrival to the ED, he was started on cardizem drip. At some point pt received aspirin as well. Pt states he feels much better at this time. No further chest pain, but he does still feel his heart is racing. It feels less intense than prior however. Pt denies fever, SOB, abd pain, n/v/c/d, LE pain or swelling. Allergies Allergy/AdvReac Type Severity Reaction Status Date / Time pollen extracts Allergy Mild ENVIRONMENTAL Verified 10/25/18 10:11 ALLERGIES Home Medications Home Medications Medication Instructions Recorded Confirmed Type Centrum Silver Men 1 tab PO QPM 04/19/18 12/30/18 History aspirin [Aspir-Low] 81 mg PO QAM 04/19/18 12/30/18 History cholecalciferol (vitamin D3) 1,000 unit PO QPM 04/19/18 12/30/18 History [Vitamin D3] nitroglycerin 1 tab SUBLINGUAL UD PRN 04/19/18 12/30/18 History omeprazole 20 mg PO BID 04/19/18 12/30/18 History simvastatin 40 mg PO PM 04/19/18 12/30/18 History triamcinolone acetonide 1 applic TOPICAL UD PRN 04/19/18 12/30/18 History Metamucil 2 tbsp PO BID 09/27/18 12/30/18 History bisacodyl [Dulcolax (bisacodyl)] 5 mg PO HS 09/27/18 12/30/18 History calcipotriene [Dovonex] 1 applic TOPICAL 2XWK 09/27/18 12/30/18 History omega 5-xie-nyk-fish oil [Fish Oil] 1 cap PO QAM 09/27/18 12/30/18 History vitamin E 400 unit PO QAM 09/27/18 12/30/18 History lisinopril 10 1 tab PO QAM #30 tab 10/07/18 12/30/18 Rx mg-hydrochlorothiazide 12.5 mg tablet saw palmetto fruit 450 mg capsule 450 mg PO DAILY cap 10/25/18 12/30/18 History apixaban 5 mg tablet 5 mg PO BID #180 tab 11/22/18 12/30/18 Rx metoprolol tartrate 50 mg PO BID 12/30/18 12/30/18 History Past Med/Surg History Medical History Arteriosclerotic cardiovascular disease (ASCVD) (Acute) Barretts esophagus Broken back Chronic back pain SPINAL MANIPULATION DONE MONTHLY Dyslipidemia (Chronic) GERD (gastroesophageal reflux disease) Hypertension Irregular heart beat Meniere disease Myocardial contusion Premature ventricular contractions (Acute) Vertigo Surgical History Fusion of spine LUMBAR History of adenoidectomy History of cardiac cath 2005 History of colonoscopy History of ear surgery RADICAL SURGERY ON LEFT EAR INCLUDING into the COCHLEAR History of esophagogastroduodenoscopy (EGD) History of heart artery stent 2005- STENT PLACED History of herniorrhaphy History of tonsillectomy History of tooth extraction Family History (Updated 12/30/18 @ 18:50 by Emilee Kline DO) Father Family history of diabetes mellitus Myocardial infarction Mother Myocardial infarction Social History Preferred Language: Welsh Communication Ability: Effective C 40A Crew Chief Required: No Beliefs That Will Affect Care: None Current Living Situation: Spouse Other Information That Helps Us Care for You: No Feels Safe at Home: Yes Safety Concerns: Feels Safe At This Time Smoking Status: Never smoker Second Hand Exposure: Yes ( environment) ; Hx Alcohol Use: No Hx Substance Use: No Review of Systems Review of Systems: Pertinent positives and negatives reviewed in HPI--all others negative Physical Exam Constitutional: WD/WN, vitals as above Eyes: normal visual vidal by confrontation and + anicteric sclerae Neck: normal visual inspection and trachea midline Respiratory: normal respiratory effort, lungs clear to auscultation Cardiovascular: Rate/Rhythm: regular rate; + abnormal rhythm Gastrointestinal (Abdomen): Inspection/Auscultation: abdomen not distended Percussion/Palpation: abdomen soft; abdomen nontender Musculoskeletal: Head/Neck/Chest: normocephalic and head atraumatic negative for edema, peripheral pulses intact Skin: no rashes, warm and dry Neurologic: awake; not confused Speech / Cognition: normal speech Psychiatric: A+Ox3, euthymic affect Results & Data Vital Signs (Past 12 Hours) Vital Signs Temp Pulse Pulse Resp BP BP Pulse Ox 12/30/18 18:30 86 21 117/69 97 12/30/18 18:15 85 16 125/70 94 12/30/18 17:20 96 H 18 110/71 94 12/30/18 17:05 95 H 18 130/75 94 12/30/18 16:58 106 H 18 130/79 94 12/30/18 16:40 97 H 20 119/61 94 12/30/18 16:38 92 H 16 122/71 94 12/30/18 15:46 97 12/30/18 15:43 36.7 C 102 H 17 124/87 96 Diagnostic Findings CXR: neg for acute ECG Additional Comments: afib with RVR Code Status & VTE Plan Code Status Full code VTE Prophylaxis Plan VTE Prophylaxis will be ordered: Yes PG Care Time/CCT Total # of Minutes Spent Total Time Spent with Patient: Total time spent is greater than 50% in coordination of care (as documented) at patient's floor/unit and/or counseling patient: (1) Chest pain Chest pain type: unspecified Qualified Code(s): R07.9 - Chest pain, unspecified
[2018-12-30] MEDS ORDERED: MAGNESIUM HYDROXIDE SUSP 30 ML UDC PO PRN (20:00)
[2018-12-30] MEDS ORDERED: ONDANSETRON INJ 2 MG/ML 2 ML VIAL IV PRN (20:00)
[2018-12-30] MEDS ORDERED: NITROGLYCERIN SL 0.4 MG/TAB TAB SL PRN (20:00)
[2018-12-30] MEDS ORDERED: ACETAMINOPHEN 325 MG TAB PO PRN (20:00)
[2018-12-30] MEDS ORDERED: TRIAMCINOLONE ACET 0.025% CR 15 GM TUBE EXT PRN (20:11)
[2018-12-30] MEDS ORDERED: BISACODYL 5 MG TABEC PO SCH (21:00)
[2018-12-30] MEDS ORDERED: SIMVASTATIN 40 MG TAB PO SCH (21:00)
[2018-12-30] MEDS ORDERED: CHOLECALCIFEROL 1,000 UNITS TAB PO SCH (21:00)
[2018-12-30] MEDS ORDERED: APIXABAN 5 MG TABLET PO SCH (21:00)
[2018-12-30] MEDS ORDERED: CEROVITE ADV FORMULA TAB PO SCH (21:00)
[2018-12-30] MEDS: METOPROLOL TARTRATE 50 MG TAB PO SCH (21:07)
[2018-12-30] MEDS: PANTOprazole 40 MG TAB PO SCH (21:08)
[2018-12-30] MEDS: PSYLLIUM 58.6% POWDER PACKET PO SCH (21:09)
[2018-12-30] MEDS ORDERED: Nursing to Pharmacy Communication ONE (21:19)
[2018-12-31 02:53] LABS: Thyroid Stimulating Hormone 1.53 uIu/ml (0.300-4.500); Troponin I 0.029 ng/ml (0-0.045)
[2018-12-31] MEDS ORDERED: APIXABAN 5 MG TABLET PO SCH (08:00)
[2018-12-31] MEDS ORDERED: INFLUENZA ADMINISTRATION CHARGE ONE (08:00)
[2018-12-31] MEDS ORDERED: INFLUENZA VACCINE HIGH DOSE 65+ 0.5 ML SYR IM ONE (08:00)
[2018-12-31] MEDS: METOPROLOL TARTRATE 50 MG TAB PO SCH (08:40)
[2018-12-31] MEDS: PANTOprazole 40 MG TAB PO SCH (08:41)
[2018-12-31] MEDS: PSYLLIUM 58.6% POWDER PACKET PO SCH (08:41)
[2018-12-31] MEDS ORDERED: LISINOPRIL/HCTZ 10/12.5MG TAB PO SCH (09:00)
[2018-12-31] MEDS ORDERED: ASPIRIN 81 MG ECTAB PO SCH (09:00)
[2018-12-31] MEDS ORDERED: FLECAINIDE ACETATE 100 MG TABLET PO SCH (10:00)
--- NOTE | 2018-12-31 13:35 | Cardiology Consultation ---
Date of Consultation December 31, 2018 Assessment & Plan (1) Atrial fibrillation with RVR: The patient continues to note a rapid ventricular response to his atrial fibrillation. We have discussed a trial of flecainide at 100 mg b.i.d.. Would continue Eliquis and metoprolol tartrate. (2) CAD (coronary artery disease): Coronary disease has been quiescent since a stent was placed in the LAD back in February 2006. Continue medical management. (3) Hypertension: Adequate control on current medical regimen. (4) Dyslipidemia: Continue simvastatin. History of Present Illness Attending Physician: Mary Lucas MD History of Present Illness Mr. Smith 73-year-old male admitted yesterday with symptomatic atrial fibrillation and a rapid ventricular response. This consultation was ordered to assist in his cardiac management. Of note, I follow the patient routinely in the outpatient setting. The patient was in his usual state of health until December 27. He developed palpitations and a rapid and irregular heart rate. He was able follow sleep that evening, and when he awoke on a Sunday morning, his symptoms had resolved. On Sunday, he again developed palpitations and a rapid and irregular heart rate. On the day of admission, the patient was experiencing significant exertional dyspnea, therefore, proceeded to the emergency room for further care. The patient was diagnosed with paroxysmal atrial fibrillation back in October of this year. He was started on Eliquis and metoprolol tartrate. He has done relatively well up until that described above. The patient does carry history of coronary artery disease having suffered a non ST elevation AK back in February 2006. He had a stent placed within the LAD at that time. He has not experienced any exertional angina pectoris since that procedure was performed. Currently, patient is resting comfortably in bed noting some palpitations. Past medical and surgical history 1. Coronary artery disease-see above 2. LAD stent-February 2006 3. Hypertension 4. Hypercholesterolemia 5. Paroxysmal atrial fibrillation-October 2018 6. LVH 7. Mild aortic insufficiency 8. GERD 9. 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 Chronic low back pain 12. Lumbar fusion 13. Left ear surgery 14. Tonsillectomy 15. Inguinal hernia repair Social history and lives with his No tobacco or alcohol Family history No early coronary artery disease Review of systems A 10 point review of systems was negative except for that described above. Allergies Allergy/AdvReac Type Severity Reaction Status Date / Time pollen extracts Allergy Mild ENVIRONMENTAL Verified 10/25/18 10:11 ALLERGIES Home Medications Home Medications Medication Instructions Recorded Confirmed Type Centrum Silver Men 1 tab PO QPM 04/19/18 12/30/18 History aspirin [Aspir-Low] 81 mg PO QAM 04/19/18 12/30/18 History cholecalciferol (vitamin D3) 1,000 unit PO QPM 04/19/18 12/30/18 History [Vitamin D3] nitroglycerin 1 tab SUBLINGUAL UD PRN 04/19/18 12/30/18 History omeprazole 20 mg PO BID 04/19/18 12/30/18 History simvastatin 40 mg PO PM 04/19/18 12/30/18 History triamcinolone acetonide 1 applic TOPICAL UD PRN 04/19/18 12/30/18 History Metamucil 2 tbsp PO BID 09/27/18 12/30/18 History bisacodyl [Dulcolax (bisacodyl)] 5 mg PO HS 09/27/18 12/30/18 History calcipotriene [Dovonex] 1 applic TOPICAL 2XWK 09/27/18 12/30/18 History omega 9-myr-wjv-fish oil [Fish Oil] 1 cap PO QAM 09/27/18 12/30/18 History vitamin E 400 unit PO QAM 09/27/18 12/30/18 History lisinopril 10 1 tab PO QAM #30 tab 10/07/18 12/30/18 Rx mg-hydrochlorothiazide 12.5 mg tablet saw palmetto fruit 450 mg capsule 450 mg PO DAILY cap 10/25/18 12/30/18 History apixaban 5 mg tablet 5 mg PO BID #180 tab 11/22/18 12/30/18 Rx metoprolol tartrate 50 mg PO BID 12/30/18 12/30/18 History Patient History Medical History Arteriosclerotic cardiovascular disease (ASCVD) (Acute) Barretts esophagus Broken back Chronic back pain SPINAL MANIPULATION DONE MONTHLY Dyslipidemia (Chronic) GERD (gastroesophageal reflux disease) Hypertension Irregular heart beat Meniere disease Myocardial contusion Premature ventricular contractions (Acute) Vertigo Surgical History Fusion of spine LUMBAR History of adenoidectomy History of cardiac cath 2006 History of colonoscopy History of ear surgery RADICAL SURGERY ON LEFT EAR INCLUDING into the COCHLEAR History of esophagogastroduodenoscopy (EGD) History of heart artery stent 2006-1 STENT PLACED History of herniorrhaphy History of tonsillectomy History of tooth extraction Family History (Updated 12/30/18 @ 18:50 by Emilee Kline DO) Father Family history of diabetes mellitus Myocardial infarction Mother Myocardial infarction Social History Preferred Language: Sami Communication Ability: Effective Poison Information Specialist Required: No Beliefs That Will Affect Care: None Current Living Situation: Spouse Other Information That Helps Us Care for You: No Feels Safe at Home: Yes Safety Concerns: Feels Safe At This Time Smoking Status: Never smoker Second Hand Exposure: Yes ( environment) ; Hx Alcohol Use: No Hx Substance Use: No Physical Exam Physical Exam: In general this is a well-developed well-nourished white male in no acute distress. HEENT exam is negative. Neck is supple with full carotid upstrokes. There are no carotid bruits. Jugular venous pressure is flat at 90. There is no thyromegaly. Cardiovascular exam reveals an irregularly irregular rhythm with distant heart sounds. No obvious murmurs. Lungs are clear without rales, rhonchi, or wheezes. Abdomen is soft and nontender without bruits. Extremities reveal intact radial artery and posterior tibial pulses bilaterally. There is no peripheral edema. Results & Data Vital Signs (Past 12 Hours) Vital Signs Temp Pulse Pulse Resp BP Pulse Ox 12/31/18 12:00 84 12/31/18 11:18 36.6 C 77 18 137/77 95 12/31/18 08:00 84 12/31/18 07:58 36.4 C L 87 22 162/68 H 97 12/31/18 03:23 36.4 C L 74 19 127/73 97 Laboratory Results CBC notes hemoglobin of 13.9, hematocrit 41.3, white count 7.7, and platelets of [id number]. Electrolytes note a sodium of 138, potassium 3.7, chloride 104, bicarb 27, BUN 22, creatinine 1.32, glucose of 100. Initial troponin was less than 0.015 with follow values of 0.025 and 0.029. TSH is normal at 1.53. Diagnostic Findings simulation specialist notes atrial fibrillation with a rapid ventricular response. PG Care Time/CCT Total # of Minutes Spent Total Time Spent with Patient: Total time spent is greater than 50% in coordination of care (as documented) at patient's floor/unit and/or counseling patient:
--- NOTE | 2018-12-31 15:15 | Hospitalist Progress Note ---
Date of Service December 31, 2018 Assessment & Plan (1) Chest pain: Appreciate cardiology recommendations Dr. Almaraz. Atrial fibrillation with RVR: The patient continues to note a rapid ventricular response to his atrial fibrillation. We have discussed a trial of flecainide at 100 mg b.i.d.. Would continue Eliquis and metoprolol tartrate. /u cardiology in 2-3 weeks. (2) Atrial fibrillation with RVR: as the above (3) Hypertension: Hypertension: Adequate control on current medical regimen. (4) CAD (coronary artery disease): s/p stent 2004 Aspirin 81mg (5) Dyslipidemia: Continue simvastatin 40 mg p.o. daily. (6) GERD (gastroesophageal reflux disease): continue home meds Present on Admission?: Yes (7) DVT prophylaxis: Hao Subjective Patient seen and examined at the bedside. He is now in sinus rhythm after he was given flecainide. Patient discussed with Dr. Almaraz cardiology and he will follow-up with him closely. To his regimen right now is at added flecainide 100 mg p.o. twice daily. Patient denies fever, chills, chest pain, shortness of breath, abdominal pain, frequency, urgency. Patient will follow-up with PCP dejon huerta 7 days. Review of Systems Review of Systems: All systems reviewed & are unremarkable except as noted in HPI & below Physical Exam Constitutional: WD/WN, vitals as above well developed Eyes: PERRL, conjunctivae normal, anicteric sclerae ENMT: external ear and nose normal, oropharynx normal Neck: trachea midline, no thyromegaly Respiratory: normal respiratory effort, lungs clear to auscultation Cardiovascular: RRR, no murmur, no edema Heart Sounds: normal S1, normal S2 and + murmur Gastrointestinal (Abdomen): normal bowel sounds, soft, nontender, no hepatosplenomegaly Musculoskeletal: no cyanosis or clubbing, extremities motor strength 5/5 Skin: no rashes, warm and dry Neurologic: patellar DTR's 2+ bilat, sensation intact Psychiatric: A+Ox3, euthymic affect Lymphatic: no cervical or axillary lymphadenopathy Results & Data Vital Signs (Past 12 Hours) Vital Signs Temp Pulse Pulse Resp BP Pulse Ox 12/31/18 12:00 84 12/31/18 11:18 36.6 C 77 18 137/77 95 12/31/18 08:00 84 12/31/18 07:58 36.4 C L 87 22 162/68 H 97 12/31/18 03:23 36.4 C L 74 19 127/73 97 PG Care Time/CCT Total # of Minutes Spent Total Time Spent with Patient: Total time spent is greater than 50% in coordination of care (as documented) at patient's floor/unit and/or counseling patient: (1) Chest pain Chest pain type: unspecified Qualified Code(s): R07.9 - Chest pain, unspecified
--- NOTE | 2018-12-31 16:52 | Discharge Summary ---
Date of Service December 31, 2018 Admission HPI Per Admitting Provider 73 y/o M c/o chest pain. Pt states that Sunday night he noted feelings of heart racing and palpitations. This resolved and Sunday was a normal day for him. He helped a family member with putting on a roof, although he states he was down on the ground helping and not on the actual roof. He did not feel any unusual exertion with this. He states he felt fine overall on Sunday. Pt states that he started to note chest pain and return of heart racing/palps yesterday. It did resolve on its own, but then sx returned today so he called EMS. EMS noted HR in the 140s. He was given cardizem by EMS. Upon arrival to the ED, he was started on cardizem drip. At some point pt received aspirin as well. Pt states he feels much better at this time. No further chest pain, but he does still feel his heart is racing. It feels less intense than prior however. Pt denies fever, SOB, abd pain, n/v/c/d, LE pain or swelling. Principal Diagnosis none Discharge Exam Constitutional WD/WN, vitals as above well developed Eyes PERRL, conjunctivae normal, anicteric sclerae ENMT external ear and nose normal, oropharynx normal Neck trachea midline, no thyromegaly Respiratory normal respiratory effort, lungs clear to auscultation Cardiovascular RRR, no murmur, no edema Heart Sounds: normal S1, normal S2 and + murmur Gastrointestinal (Abdomen) normal bowel sounds, soft, nontender, no hepatosplenomegaly Musculoskeletal no cyanosis or clubbing, extremities motor strength 5/5 Skin no rashes, warm and dry Neurologic patellar DTR's 2+ bilat, sensation intact Psychiatric A+Ox3, euthymic affect Lymphatic no cervical or axillary lymphadenopathy Discharge Data Allergies Allergy/AdvReac Type Severity Reaction Status Date / Time pollen extracts Allergy Mild ENVIRONMENTAL Verified 10/25/18 10:11 ALLERGIES Consultations 12/30/18 18:11 ED Decision to Admit Stat 12/30/18 20:00 Consult Cardiology Routine Hospital Course (1) Chest pain: Appreciate cardiology recommendations Dr. Almaraz. Atrial fibrillation with RVR: The patient continues to note a rapid ventricular response to his atrial fibrillation. We have discussed a trial of flecainide at 100 mg b.i.d.. Would continue Eliquis and metoprolol tartrate. /u cardiology in 2-3 weeks. (2) Atrial fibrillation with RVR: as the above (3) Hypertension: Hypertension: Adequate control on current medical regimen. (4) CAD (coronary artery disease): s/p stent 2004 Aspirin 81mg (5) Dyslipidemia: Continue simvastatin 40 mg p.o. daily. (6) GERD (gastroesophageal reflux disease): continue home meds (7) DVT prophylaxis: Eliquis Total Time Total Time Spent Total Time Spent (In Minutes): over 30 min Discharge Plan Discharge Items Patient Disposition: Home - Self-Care Reason For Visit: AFIB, RVR Discharge Diagnosis: AFIB, RVR Condition on Discharge: Good Activity: As commented below Lifting: Gradually increase as tolerated Non-emergency contact: Primary Care Provider and Correctional Therapy Teacher Call non-emergency contact if: you have any medication questions, your symptoms worsen, your pain is not controlled, your pain is worsening, your pain is unusual for you, your pain is concerning for you, you have a fever, your temperature is above 101 and your temperature is above 101.5 Follow-up/Referrals: Marlys Oneill MD [Primary Care Provider] - Diet: Heart Healthy and Low Sodium (2gm) Addtl Attending Provider Instructions: Follow up with -cardiology at your scheduled time. Follow up with PCP within 7 days and check labs CBC, CMP . Pending Studies at Discharge: No Stand-Alone Forms: My [employer] Smoking Cessation Medications and DC Order Prescriptions: New flecainide 100 mg Tablet 100 mg PO BID Qty: 60 RF: 1 Continued Eliquis 5 mg tablet 5 mg PO BID Qty: 180 RF: 3 saw palmetto fruit 450 mg capsule 450 mg PO DAILY RF: 0 lisinopril-hydrochlorothiazide 10-12.5 mg tablet 1 tab PO QAM Qty: 30 RF: 3 calcipotriene [Dovonex] 0.005 % Cream 1 applic TOPICAL 2XWK RF: 0 vitamin E 400 unit Capsule 400 unit PO QAM RF: 0 omega 6-wdz-bdp-fish oil [Fish Oil] 1,000 mg (120 mg-180 mg) Capsule 1 cap PO QAM RF: 0 bisacodyl [Dulcolax (bisacodyl)] 5 mg Tablet,Delayed Release (Dr/Ec) 5 mg PO HS RF: 0 Metamucil 3.4 gram/5.4 gram Powder 2 tbsp PO BID RF: 0 triamcinolone acetonide 0.025 % Lotion 1 applic TOPICAL UD PRN (Reason: psorasis) RF: 0 aspirin [Aspir-Low] 81 mg Tablet,Delayed Release (Dr/Ec) 81 mg PO QAM RF: 0 simvastatin 40 mg Tablet 40 mg PO PM RF: 0 nitroglycerin 0.4 mg Tablet, Sublingual 1 tab Sublingual UD PRN (Reason: Chest Pain) RF: 0 omeprazole 20 mg Tablet,Delayed Release (Dr/Ec) 20 mg PO BID RF: 0 cholecalciferol (vitamin D3) [Vitamin D3] 1,000 unit Tablet 1,000 unit PO QPM RF: 0 Centrum Silver Men 300-600-300 mcg Tablet 1 tab PO QPM RF: 0 metoprolol tartrate 50 mg tablet 50 mg PO BID RF: 0 Discharge Orders: Discharge Order (Routine); Ordered 12/31/18 Ordered By: Mary Hoang/Other Patient Handouts: Fibrillation Atrial Dc, Flecainide Acetate Oral tablet Admission Data Admit Date/Time: 12/30/18 18:44 Attending Provider: Mary Lucas Admit Provider: Emilee Kline Primary Care Provider: Marlys Oneill Other Providers: Emilee Kline ; Chava Almaraz Other Interventions: Discharge Summary Assessment (RN) Last Done: 12/31/18 15:44 DC Date/Time DO NOT enter until pt leaves facility: 12/31/18 16:07
== END 2018-12-31 16:07 | disposition home or self-care (01) | DRG 310 ==
LOC: ED 15:23 → SUATTDRO 18:44 → 2S 18:44